=== PATIENT | male | born 1975 | race African-American/Black ===

== ENCOUNTER → 2020-09-04 14:08 | Outpatient (BNVA) | payer OTHER, SELFPAY | PROVIDERS: PCP Physician Assistant; Referring Provider Physician Assistant; Visit Provider Internal Medicine | DX: G47.33 Obstructive sleep apnea (adult) (pediatric) (principal); E66.9 Obesity, unspecified; Z68.42 Body mass index [BMI] 45.0-49.9, adult; I10 Essential (primary) hypertension | CPT/HCPCS: 99212 ==

== ENCOUNTER 2021-04-17 08:07 | Outpatient (REF) | payer OTHER, SELFPAY ==
--- NOTE | ~2021-04-17 | XR_ITS ---
EXAMINATION: XR CHEST CLINICAL INFORMATION: Neck pain dependence, unspecified, uncomplicated. COMPARISON: None TECHNIQUE: 2 views of the chest were obtained. FINDINGS: No significant abnormality is noted involving the heart, lungs, mediastinum, bony thorax or soft tissues. XR/XR chest 2V IMPRESSION: Unremarkable examination.
[2021-04-17 10:27] LABS: Hematocrit 51.2 % (42-52); Hemoglobin 16.2 g/dl (14.0-18.0); Mean Corpuscular HGB Conc 31.6 g/dl (31.0-36.0); Mean Corpuscular Volume 82.3 fL (80-98); Mean Platelet Volume 10.5 fL (9.4-12.4); Platelet Count 336 X10*3/uL (160-400); Red Blood Count 6.22 X10*6/uL (4.60-5.80); Red Cell Distribution Width 14.8 % (11.0-16.0); White Blood Count 7.7 X10*3/uL (4.8-10.8)
[2021-04-17 10:39] LABS: Estimated Average Glucose 117 mg/dL; Hemoglobin A1c % 5.7 %
[2021-04-17 10:58] LABS: Alanine Aminotransferase 23 U/L (0-40); Albumin Level 4.3 g/dL (3.5-5.0); Alkaline Phosphatase 106 U/L (39-117); Anion Gap 15 (12-20); Aspartate Amino Transferase 17 U/L (5-37); Bilirubin Total 0.4 mg/dL (0.0-1.0); Blood Urea Nitrogen 11 mg/dL (9-16); Calcium 9.6 mg/dL (8.4-10.2); Carbon Dioxide 26 mmol/L (22-29); Chloride 102 mmol/L (96-108); Cholesterol 171 mg/dL; Creatinine Urine 14.43 mg/dL; Estimated Glomerular Filt Rate > 60; Glucose Fasting 131 mg/dL (60-99); HDL Cholesterol 45 mg/dL; LDL Cholesterol Calculated 106 mg/dl; Microalbum/Creatinine Ratio Ur 34.6 ug/mg cr; Potassium 4.2 mmol/L (3.3-5.1); Sodium 139 mmol/L (135-145); Triglycerides 100 mg/dL
[2021-04-17 11:20] LABS: Prostate Specific Antigen Scr 0.34 ng/mL (<0.05-4.0); TSH reflex Free T4 0.47 uIU/mL (0.32-4.0)
== END 2021-04-17 08:08 | disposition home or self-care (01) ==
LOC: HO.10HDL 08:07
PROVIDERS: PCP Physician Assistant; Visit Provider Physician Assistant
DX: Z12.5 Encounter for screening for malignant neoplasm of prostate (principal); I10 Essential (primary) hypertension; E66.9 Obesity, unspecified; F17.200 Nicotine dependence, unspecified, uncomplicated
CPT/HCPCS: 36415; 71046; 80053; 80061; 82043; 83036; 84153; 84443; 85027

== ENCOUNTER 2022-01-18 10:06 | Outpatient (REF) | payer OTHER, SELFPAY ==
[2022-01-18 13:29] LABS: Hematocrit 50.8 % (42.0-52.0); Hemoglobin 16.2 g/dl (14.0-18.0); Mean Corpuscular HGB Conc 31.9 g/dl (31.0-36.0); Mean Corpuscular Hemoglobin 25.9 pg (27.0-33.0); Mean Corpuscular Volume 81.3 fL (80.0-98.0); Mean Platelet Volume 10.2 fL (9.4-12.4); Platelet Count 338 X10*3/uL (160-400); Red Blood Count 6.25 X10*6/uL (4.60-5.80); Red Cell Distribution Width 14.3 % (11.0-16.0); White Blood Count 8.5 X10*3/uL (4.8-10.8)
[2022-01-18 13:40] LABS: Alanine Aminotransferase 20 U/L (0-40); Albumin Level 4.4 g/dL (3.5-5.0); Alkaline Phosphatase 114 U/L (39-117); Anion Gap 13 (12-20); Aspartate Amino Transferase 17 U/L (5-37); Bilirubin Total 0.5 mg/dL (0.0-1.0); Blood Urea Nitrogen 11 mg/dL (9-16); Calcium 9.8 mg/dL (8.4-10.2); Carbon Dioxide 24 mmol/L (22-29); Chloride 103 mmol/L (96-108); Cholesterol 174 mg/dL; Estimated Glomerular Filt Rate > 60; Glucose Fasting 82 mg/dL (60-99); HDL Cholesterol 45 mg/dL; LDL Cholesterol Calculated 113 mg/dl; Potassium 4.2 mmol/L (3.3-5.1); Sodium 136 mmol/L (135-145); Total Protein 7.3 g/dL (6.5-8.0); Triglycerides 80 mg/dL
[2022-01-18 14:02] LABS: Prostate Specific Antigen Scr 0.69 ng/mL (<0.05-4.0); TSH reflex Free T4 0.86 uIU/mL (0.32-4.0)
[2022-01-18 14:08] LABS: Estimated Average Glucose 120 mg/dL; Hemoglobin A1c % 5.8 %
[2022-01-18 14:29] LABS: Creatinine Urine 34.29 mg/dL; Microalbum/Creatinine Ratio Ur 40.8 ug/mg cr
== END 2022-01-18 10:07 | disposition home or self-care (01) ==
LOC: HO.10HDL 10:06
PROVIDERS: Visit Provider Physician Assistant
DX: I10 Essential (primary) hypertension (principal); Z12.5 Encounter for screening for malignant neoplasm of prostate
CPT/HCPCS: 36415; 80053; 80061; 82043; 83036; 84153; 84443; 85027

== ENCOUNTER → 2023-02-16 12:20 | Outpatient (BNVA) | payer OTHER, SELFPAY | PROVIDERS: PCP Physician Assistant; Visit Provider Physician Assistant | DX: Z12.11 Encounter for screening for malignant neoplasm of colon (principal) | CPT/HCPCS: 99202 ==

== ENCOUNTER 2023-05-13 08:05 | Outpatient (REF) | payer OTHER, SELFPAY ==
[2023-05-13 11:43] LABS: Hematocrit 51.6 % (42.0-52.0); Hemoglobin 16.2 g/dl (14.0-18.0); Mean Corpuscular HGB Conc 31.4 g/dl (31.0-36.0); Mean Corpuscular Hemoglobin 25.8 pg (27.0-33.0); Mean Corpuscular Volume 82.2 fL (80.0-98.0); Mean Platelet Volume 10.7 fL (9.4-12.4); Platelet Count 292 X10*3/uL (160-400); Red Blood Count 6.28 X10*6/uL (4.60-5.80); Red Cell Distribution Width 14.2 % (11.0-16.0); White Blood Count 7.1 X10*3/uL (4.8-10.8)
[2023-05-13 12:43] LABS: Alanine Aminotransferase 16 U/L (0-40); Albumin Level 4.2 g/dL (3.5-5.0); Alkaline Phosphatase 118 U/L (39-117); Anion Gap 15 (12-20); Aspartate Amino Transferase 19 U/L (5-37); Bilirubin Total 0.5 mg/dL (0.0-1.0); Blood Urea Nitrogen 10 mg/dL (9-16); Calcium 9.6 mg/dL (8.4-10.2); Carbon Dioxide 25 mmol/L (22-29); Chloride 103 mmol/L (96-108); Cholesterol 158 mg/dL; Estimated Glomerular Filt Rate > 60; Glucose Fasting 81 mg/dL (60-99); HDL Cholesterol 47 mg/dL; LDL Cholesterol Calculated 91 mg/dl; Potassium 4.1 mmol/L (3.3-5.1); Sodium 139 mmol/L (135-145); Total Protein 7.4 g/dL (6.5-8.0); Triglycerides 104 mg/dL
[2023-05-13 12:56] LABS: TSH reflex Free T4 0.78 uIU/mL (0.32-4.0)
[2023-05-13 13:03] LABS: Prostate Specific Antigen Scr 0.44 ng/mL (<0.05-4.0)
[2023-05-13 13:03] LABS: Creatinine Urine 120.44 mg/dL; Microalbum/Creatinine Ratio Ur 254.8 ug/mg cr
== END 2023-05-13 08:06 | disposition home or self-care (01) ==
LOC: HO.WFDLDS 08:05
PROVIDERS: Visit Provider Physician Assistant
DX: Z12.5 Encounter for screening for malignant neoplasm of prostate (principal); I10 Essential (primary) hypertension
CPT/HCPCS: 36415; 80053; 80061; 82043; 84153; 84443; 85027

== ENCOUNTER 2023-06-15 13:53 | Outpatient (AMB) | payer OTHER, SELFPAY ==
[2023-06-15 13:59] VITALS: BP 128/74; PULSE 107; O2SAT 98; BMI 47.1
--- NOTE | 2023-06-15 13:59 | A.OFFPC_ITS ---
Vital Signs 06/15/23 13:59 Height 5 ft 9 in Weight 319 lb BMI 47.1 BP 128/74 Blood Pressure Location Lt brachial Position Sitting Pulse 107 H Pulse Source Pulse Oximeter Pulse Oximetry (%) 98 Oxygen Delivery Method Room Air Intake Visit Reasons: - weight check Allergies amlodipine Allergy (Unknown, Verified 06/15/23 14:12) GI side effects ibuprofen Allergy (Unknown, Verified 06/15/23 14:12) Hives citalopram [From Celexa] Adverse Reaction (Intermediate, Verified 06/15/23 14:12) Depression Medication List - Last Reconciled 06/15/23 by Chun Bernal PA-C bisacodyl (Dulcolax (bisacodyl)) 10 mg (2 x 5 mg) PO ONCE 1 day cetirizine (Zyrtec) 10 mg PO DAILY 90 days cyclobenzaprine 10 mg PO BID 7 days docusate sodium (Colace) 100 mg PO DAILY escitalopram oxalate 5 mg PO DAILY fluticasone propionate 50 mcg/actuation (Flonase Allergy Relief) 2 sprays intranasal BID 30 days gabapentin 300 mg PO BID 90 days lisinopril 30 mg PO DAILY lorazepam 0.5 mg PO DAILY PRN 7 days meloxicam 15 mg PO DAILY 30 days metoprolol succinate ER 25 mg PO DAILY phentermine 37.5 mg PO DAILY 28 days polyethylene glycol 3350 (Miralax) 238 grams PO ONCE PRN 1 day Tobacco use date assessed: 05/17/23 Dental Screening Dental Screen Date: 06/15/23 Did you have a dental visit in the last 12 months?: No Did you have a dental problem in the last 6 months where you did not have access to dental care?: No Was dental information given to patient?: Patient has dentist HPI - weight check HPI Details Lopez is a 47-year -old male here tod ay for? follow-up visit Patient has a past medical his tory significant f or essential hyper tension, smoker, o besity, chronic charlene mbar spine pain. At last visit we d iscussed his weigh t and he was hyun ochoa to try p.o. med ication (phentermi ne) to help with weight reduction. Unfortunately was not covered by in surance and was mu too expensive o [id number]. He is willing to try injection therapy to weight loss. Jey garcia also reports ove r the last 2 weeks noting right hip pain and instabili ty when walking. He cannot recall a ny trauma or any r ecent falls. 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 ? [employer]-->? ? ? .. ? Hypertension: ? Continues on lis inopril 30 mg, met oprolol 25. He rep orts his blood pre ssures in the morn ings have been sta ble though in the afternoons slightl y high.? Blood pre ssure still slight ly elevated today in office.? PLAN:? Will switch to us ing his blood pres sure medications i n the afternoons .. Major depressi ve disorder:? Has lab had longstandi ng depression near ly a month ago had severe episode de pression to which he believed was du e to a medication (Celexa) and has d iscontinued its us e and now feels be tter. .. Obstruct neel sleep apnea:? Has been treated w ith CPAP nightly b asis with good eff ect on his sleep.? Continues to foll ow pulmonology. ? .. ?? ?Tobacc o dependency:? Unf ortunately pick ba ck up smoking and now smoking pack c igarettes per day ? PFSH Medical History HTN (hypertension) Hypertension Lumbar spondylosis RYLIE (obstructive sleep apnea) Tobacco dependence Surgical History No pertinent past surgical history Family History Father No problems noted. Mother Arthritis Asthma Paternal Grandfather Leukemia Substance use disorder Brother Substance use disorder Social History Housing: Apartment Alcohol intake: former Patient Tobacco Use Status: Former Tobacco user Tobacco use type: Cigarette Cigarette Packs Per Day: 0.5 Cigarettes Per Day: 10 Years Smoked: 27 e-Cigarette/Vaping Use: Never Used Second Hand Smoke Exposure: Yes Substance Use Type: Marijuana service: No Current occupational status: employed Current occupation: [employer] Cognitive needs: No Hearing needs: No Vision needs: No Questionnaire PHQ-9 Over the last 2 weeks, how often have you been bothered by any of the following problems? 1. Little interest or pleasure in doing things: more than half the days 2. Feeling down, depressed, or hopeless: more than half the days 3. Trouble falling or staying asleep, or sleeping too much: more than half the days 4. Feeling tired or having little energy: more than half the days 5. Poor appetite or overeating: more than half the days 6. Feeling bad about yourself - or that you are a failure or have let yourself or your family down: nearly every day 7. Trouble concentrating on things, such as reading the newspaper or watching television: several days 8. Moving or speaking so slowly that other people could have noticed. Or the opposite - being so fidgety or restless that you have been moving around a lot more than usual: several days 9. Thoughts that you would be better off or of hurting yourself in some way: not at all Total score: 15 Depression Screening Interpretation: Positive 38411 - PHQ-9 Billing: Yes Source: Developed by Drs. Bryson Stokes, Elda Prince, Sid Acevedo and colleagues, with an educational junior from [employer]. Thrive Questionnaire Date Thrive assessed: 05/17/23 I am a: Patient What is your living situation today?: I have a steady place to live Within the past 12 months, did the food you bought not last and you didn't have the money to get more?: Never true Within the past 12 months, did you worry whether your food would run out before you got money to buy more?: Never true Do you have trouble paying for medicines?: No Do you have trouble getting transportation to medical appointments?: No Do you have trouble paying your heating and electricity bill?: No Do you have trouble taking care of your child, family member or friend?: No Do you have trouble with day-to-day activities such as bathing, preparing meals, shopping, managing finances, etc.?: No Are you currently unemployed and looking for a job?: No Are you interested in more education?: No Please select the resources that you would like help with: None Currently or been in a relationship where the following occur: no concerns reported AUDIT C Alcohol Use Questionnaire (AUDIT-C) 1. How often do you have a drink containing alcohol?: Never 3. How often do you have six or more drinks on one occasion?: Never Total Score: 0 JEFF-7 AMB Questionnaire JEFF-7 Date JEFF - 7 assessed: 05/17/23 Feeling nervous, anxious, or on edge: 1 = Several days Not being able to stop or control worryin = Several days Worrying too much about different things: 1 = Several days Trouble relaxin = Several days Being so restless that it is hard to sit still: 1 = Several days Becoming easily annoyed or irritable: 1 = Several days Feeling afraid as if something awful might happen: 1 = Several days Total JEFF-7 score (0-4 normal; 5-9 mild; 10-14 moderate; 15-21 severe): 7 Source: Developed by Drs. Bryson Stokes, Elda Prince, Sid Acevedo and colleagues, with an educational junior from [employer]. JEFF-7 Assessment Billing JEFF-7 Assessment Tool: JEFF-7 Assessment 03204 Review of Systems Const Denies headache(s) Eyes Denies loss of vision ENT Denies vertigo, Denies dizziness, Denies headache(s) and Denies sore throat Card Denies chest pain, Denies leg edema and Denies lightheadedness Resp Denies cough, Denies hemoptysis and Denies wheezing GI Denies abdominal pain, Denies melena, Denies constipation, Denies diarrhea and Denies vomiting Denies dysuria, Denies urinary frequency and Denies urinary urgency Musc Denies arthralgias, Denies joint swelling, Denies numbness and Denies tingling Neuro Denies Abnormal speech present, Denies behavioral changes, Denies vertigo, Denies dizziness, Denies headache(s), Denies loss of vision, Denies memory loss, Denies numbness and Denies tingling Psych Denies anxiety, Denies behavioral changes, Denies depression, Denies memory loss and Denies panic attacks Martin/Lymph Denies easy bleeding and Denies easy bruising Aller/Immun Denies wheezing Physical exam (Primary Care) Vital Signs: Last Vital Signs Pulse 107 H 06/15/23 13:59 BP 128/74 06/15/23 13:59 Pulse Ox 98 06/15/23 13:59 Oxygen Delivery Method Room Air 06/15/23 13:59 BMI result Body Mass Index 47.1 Tobacco/Smoking Status: Tobacco use Status Tobacco use date assessed 05/17/23 06/15/23 14:05 Patient Tobacco Use Status Former Tobacco user 06/15/23 14:05 Tobacco use type Cigarette 06/15/23 14:05 e-Cigarette/Vaping Use Never Used 06/15/23 14:05 PHQ-9: PHQ-9 Score PHQ-9: Total score 15 06/15/23 14:16 Depression Screening Interpretation: Positive Thrive Assessment: Date of Thrive Assessment Date Thrive assessed 05/17/23 06/15/23 14:05 Currently or been in a relationship where the following occur: no concerns reported Const General: healthy appearing, no acute distress, alert and awake Nutritional Appearance: well nourished Orientation/consciousness: oriented to person, oriented to place and oriented to time HENMT Ears: TM's normal bilaterally General nose exam: Normal nasal mucous membranes and turbinates present Eyes Conjunctivae: conjunctivae normal Sclerae: sclerae normal Pupils: Equal, round and reactive pupils present Neck Neck: Yes no lymphadenopathy and Yes no JVD Thyroid: Thyroid normal Carotids: no bruits Resp Effort & Inspection: normal respiratory effort and not tachypneic Auscultation: no crackles, no rales, no rhonchi and no wheezes Cardio Rate: regular rate Rhythm: regular rhythm Heart sounds: no murmurs and normal S1 and S2 GI Palpation (GI): Soft to palpation, nontender, no hepatomegaly and no splenomegaly Auscultation: normal bowel sounds Skin General skin exam: no rashes or lesions noted and dry skin Neuro General: oriented to person, oriented to place and oriented to time Cranial nerves: Yes Equal, round and reactive pupils present Speech: No Abnormal speech present Gait exam (Neuro): Normal gait present Motor exam (neuro): no tremor noted Extrem Other: RIGHT HIP WITH LIMITED FLEXION DUE TO STIFFNESS. REPORTS SOME SUBJECTIVE DISCOMFORT WHILE STANDING IN HIS RIGHT HIP Right upper extremity: full ROM Left upper extremity: full ROM Right lower extremity: full ROM; no edema Left lower extremity: full ROM; no edema Psych Mental Status: mental status grossly normal Speech and movement: Normal speech and movement present Affect: normal affect Attitude: cooperative Thought process: Normal thought process present Assessment and Plan Assessment & Plan (1) Obese: Code(s): E66.9 - Obesity, unspecified Qualifiers: Body mass index: BMI 45.0-49.9 Obesity classification: adult class 3 (BMI >= 40) Obesity type: due to excess calories Serious obesity comorbidity presence: with serious comorbidity Qualified Code(s): E66.01 - Morbid (severe) obesity due to excess calories; Z68.42 - Body mass index [BMI] 45.0-49.9, adult Plan: Patient continues to have a BM my well over 40. Also does have impaired glucose metabolism in A1c of 5.8 in a prediabetic range. He is willing to try Ozempic once a week injection to help with weight loss. (2) Tendinitis of right hip flexor: Code(s): M76.891 - Other specified enthesopathies of right lower limb, excluding foot Plan: Patient's right hip pain and instability with flexion of the hip most consistent with a tendinitis of the hip flexors. Will likely benefit from some physical therapy. Would likely need rest to help with his recovery. 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 (3) Impaired glucose metabolism: Code(s): R73.09 - Other abnormal glucose Plan: As above patient has A1c at 5.8 and prediabetic range. Would likely benefit from injectable weight loss therapy Medications: New semaglutide (Ozempic) for 4 weeks 0.25 mg (0.368 mL) subcut QWEEK 4 weeks 3 mL 1RF E66.9 - Obesity, unspecified, R73.09 - Other abnormal glucose Discontinued phentermine must administer 30 minutes before or 1-2 hours after breakfast Discontinued Reason: Doctor's Order 37.5 mg PO DAILY 28 days 28 caps 0RF E66.01 - Morbid (severe) obesity due to excess calories, Z68.42 - Body mass index [BMI] 45.0-49.9, adult Coding Level of Care Code Est Pt Level 4 (45080) Diagnoses Obese E66.01; Z68.42 Body mass index: BMI 45.0-49.9 Obesity classification: adult class 3 (BMI >= 40) Obesity type: due to excess calories Serious obesity comorbidity presence: with serious comorbidity Tendinitis of right hip flexor M76.891 Impaired glucose metabolism R73.09 Additional Codes JEFF-7 Assessment Billing - JEFF-7 Assessment Tool: JEFF-7 Assessment 26886 ([id number])
== END 2023-06-15 14:37 | disposition home or self-care (01) ==
PROVIDERS: PCP Physician Assistant; Visit Provider Physician Assistant
DX: E66.01 Morbid (severe) obesity due to excess calories (principal); Z68.42 Body mass index [BMI] 45.0-49.9, adult; M76.891 Other specified enthesopathies of right lower limb, excluding foot; R73.09 Other abnormal glucose
CPT/HCPCS: 99214

== ENCOUNTER 2024-09-11 13:51 | Outpatient (AMB) | payer OTHER, SELFPAY ==
[2024-09-11 13:56] VITALS: BP 150/100; PULSE 105; O2SAT 97; BMI 46.2
--- NOTE | 2024-09-11 13:56 | A.OFFPC_ITS ---
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 Accompanied by: Self / Same As Patient Allergies amlodipine Allergy (Unknown, Verified 09/11/24 14:11) GI side effects ibuprofen Allergy (Unknown, Verified 09/11/24 14:11) Hives citalopram [From Celexa] Adverse Reaction (Intermediate, Verified 09/11/24 14:11) Depression Medication List - Last Reconciled 09/11/24 by Chun Bernal PA-C bisacodyl (Dulcolax (bisacodyl)) 10 mg (2 x 5 mg) PO ONCE 1 day cetirizine (Zyrtec) 10 mg PO DAILY 90 days cyclobenzaprine 10 mg PO BID 7 days docusate sodium (Colace) 100 mg PO DAILY dulaglutide (Trulicity) 0.75 mg (0.5 mL) subcut QWEEK 4 weeks escitalopram oxalate 5 mg PO DAILY fluticasone propionate 50 mcg/actuation (Flonase Allergy Relief) 2 sprays intranasal BID 30 days gabapentin 300 mg PO BID 90 days lisinopril 30 mg PO DAILY lorazepam 0.5 mg PO DAILY PRN 7 days meloxicam 15 mg PO DAILY 30 days metoprolol succinate ER 25 mg PO DAILY polyethylene glycol 3350 (Miralax) 238 grams PO ONCE PRN 1 day semaglutide (Ozempic) 0.25 mg (0.368 mL) subcut QWEEK 4 weeks Tobacco use date assessed: 09/11/24 Dental Screening Dental Screen Date: 09/11/24 Did you have a dental visit in the last 12 months?: Yes Did you have a dental problem in the last 6 months where you did not have access to dental care?: No Was dental information given to patient?: Patient has dentist HPI elevated BP HPI Details Lopez is a 48 year-old male here today for? follow-up visit Patient has a past medical history significant for essential hypertension, smoker, obesity, chronic lumbar spine pain. Concern-> - Patient reports his blood pressure has been up as of late. He attributes this to a salty [place] food he may have a in. He was on hydrochlorothiazide in the past which was helpful thus will restart for better blood pressure control. Lumbar spondylosis: Continues to have lower lumbar spine pain. Does use topical Simone-Rock. Does report meloxicam was very helpful in reducing his pain. Will be considering physical therapy. ? CHRONIC MEDICAL CONDITIONS-->? ? ? .. ? Hypertension:?Patient reports his blood pressure has been up as of late. He attributes this to a salty [place] food he may have a in. He was on hydrochlorothiazide in the past which was helpful thus will restart for better blood pressure control. Continues on lisinopril 30 mg, metoprolol 25. ..Major depressive disorder:? Has lab tran d longstanding depression nearly a month ago had severe episode depression to which he believed was due to a medication (Celexa) and has discontinued its use and now feels better. .. ..Obstructive sleep apnea:? Has been farzana ated with CPAP nightly basis with good effect on his sleep.? Continues to follow pulmonology. [facility] Medical History Lumbar spondylosis Tobacco dependence Hypertension RYLIE (obstructive sleep apnea) HTN (hypertension) Surgical History No pertinent past surgical history Family History Father No problems noted. Mother Arthritis Asthma Paternal Grandfather Leukemia Substance use disorder Brother Substance use disorder Social History Housing: Apartment Alcohol intake: former Patient Tobacco Use Status: Former Tobacco user Tobacco use type: Cigarette Cigarette Packs Per Day: 0.5 Cigarettes Per Day: 10 Years Smoked: 27 e-Cigarette/Vaping Use: Never Used Second Hand Smoke Exposure: Yes Substance Use Type: Marijuana service: No Current occupational status: employed Current occupation: N Cognitive needs: No Hearing needs: No Vision needs: No Questionnaire PHQ-9 Over the last 2 weeks, how often have you been bothered by any of the following problems? 1. Little interest or pleasure in doing things: nearly every day 2. Feeling down, depressed, or hopeless: nearly every day 3. Trouble falling or staying asleep, or sleeping too much: more than half the days 4. Feeling tired or having little energy: nearly every day 5. Poor appetite or overeating: nearly every day 6. Feeling bad about yourself - or that you are a failure or have let yourself or your family down: more than half the days 7. Trouble concentrating on things, such as reading the newspaper or watching television: nearly every day 8. Moving or speaking so slowly that other people could have noticed. Or the opposite - being so fidgety or restless that you have been moving around a lot more than usual: several days 9. Thoughts that you would be better off or of hurting yourself in some way: not at all Total score: 20 Depression Screening Interpretation: Positive Depression Screening Follow-up: Existing condition Depression Screening Done: Yes 90915 - PHQ-9 Billing: Yes Source: Developed by Drs. Bryson Stokes, Elda Prince, Sid Acevedo and colleagues, with an educational junior from [employer]. Thrive Questionnaire Date Thrive assessed: 09/11/24 I am a: Patient What is your living situation today?: I have a steady place to live Within the past 12 months, did the food you bought not last and you didn't have the money to get more?: Never true Within the past 12 months, did you worry whether your food would run out before you got money to buy more?: Never true Do you have trouble paying for medicines?: No Do you have trouble getting transportation to medical appointments?: Yes Do you have trouble paying your heating and electricity bill?: No Do you have trouble taking care of your child, family member or friend?: No Do you have trouble with day-to-day activities such as bathing, preparing meals, shopping, managing finances, etc.?: No Are you currently unemployed and looking for a job?: No Are you interested in more education?: No Please select the resources that you would like help with: None Currently or been in a relationship where the following occur: No concerns reported THRIVE Score: 1 AUDIT C Alcohol Use Questionnaire (AUDIT-C) 1. How often do you have a drink containing alcohol?: Never 3. How often do you have six or more drinks on one occasion?: Never Total Score: 0 JEFF-7 AMB Questionnaire JEFF-7 Date JEFF - 7 assessed: 09/11/24 Feeling nervous, anxious, or on edge: 3 = Nearly every day Not being able to stop or control worryin = Nearly every day Worrying too much about different things: 3 = Nearly every day Trouble relaxin = Nearly every day Being so restless that it is hard to sit still: 3 = Nearly every day Becoming easily annoyed or irritable: 3 = Nearly every day Feeling afraid as if something awful might happen: 3 = Nearly every day Total JEFF-7 score (0-4 normal; 5-9 mild; 10-14 moderate; 15-21 severe): 21 Source: Developed by Drs. Bryson Stokes, Elda Prince, Sid Acevedo and colleagues, with an educational junior from [employer]. JEFF-7 Assessment Billing JEFF-7 Assessment Tool: JEFF-7 Assessment 89383 Review of Systems Const Denies headache(s) Eyes Denies loss of vision ENT Denies vertigo, Denies dizziness, Denies headache(s) and Denies sore throat Card Denies chest pain, Denies leg edema and Denies lightheadedness Resp Denies cough, Denies hemoptysis and Denies wheezing GI Denies abdominal pain, Denies melena, Denies constipation, Denies diarrhea and Denies vomiting Denies dysuria, Denies urinary frequency and Denies urinary urgency Musc Reports back pain, Denies arthralgias, Denies joint swelling, Denies numbness and Denies tingling Neuro Denies Abnormal speech present, Denies behavioral changes, Denies vertigo, Denies dizziness, Denies headache(s), Denies loss of vision, Denies memory loss, Denies numbness and Denies tingling Psych Reports anxiety, Denies behavioral changes, Reports depression, Reports anhedonia, Denies memory loss and Denies panic attacks Martin/Lymph Denies easy bleeding and Denies easy bruising Aller/Immun Denies wheezing Physical exam (Primary Care) Vital Signs: Last Vital Signs Pulse 105 H 09/11/24 13:56 BP 150/100 H 09/11/24 13:56 Pulse Ox 97 09/11/24 13:56 Oxygen Delivery Method Room Air 09/11/24 13:56 BMI result Body Mass Index 46.2 Tobacco/Smoking Status: Tobacco use Status Tobacco use date assessed 09/11/24 09/11/24 14:09 Patient Tobacco Use Status Former Tobacco user 09/11/24 13:59 Tobacco use type Cigarette 09/11/24 13:59 e-Cigarette/Vaping Use Never Used 09/11/24 13:59 PHQ-9: PHQ-9 Score PHQ-9: Total score 20 09/11/24 14:10 Depression Screening Interpretation: Positive Depression Screening Follow-up: Existing condition Thrive Assessment: Date of Thrive Assessment Date Thrive assessed 09/11/24 09/11/24 13:59 Currently or been in a relationship where the following occur: No concerns reported Const General: healthy appearing, no acute distress, alert and awake Nutritional Appearance: well nourished Orientation/consciousness: oriented to person, oriented to place and oriented to time HENMT Ears: TM's normal bilaterally General nose exam: Normal nasal mucous membranes and turbinates present Eyes Conjunctivae: conjunctivae normal Sclerae: sclerae normal Pupils: Equal, round and reactive pupils present Neck Neck: Yes no lymphadenopathy and Yes no JVD Thyroid: Thyroid normal Carotids: no bruits Resp Effort & Inspection: normal respiratory effort and not tachypneic Auscultation: no crackles, no rales, no rhonchi and no wheezes Cardio Rate: regular rate Rhythm: regular rhythm Heart sounds: no murmurs and normal S1 and S2 GI Palpation (GI): Soft to palpation, nontender, no hepatomegaly and no splenomegaly Auscultation: normal bowel sounds Skin General skin exam: no rashes or lesions noted and dry skin Neuro General: oriented to person, oriented to place and oriented to time Cranial nerves: Yes Equal, round and reactive pupils present Speech: No Abnormal speech present Gait exam (Neuro): Normal gait present Motor exam (neuro): no tremor noted Extrem Right upper extremity: full ROM Left upper extremity: full ROM Right lower extremity: full ROM; no edema Left lower extremity: full ROM; no edema Psych Mental Status: mental status grossly normal Speech and movement: Normal speech and movement present Affect: normal affect Attitude: cooperative Thought process: Normal thought process present Office Procedures Flu Questionnaire Does the patient have a severe egg allergy?: No Immunizations Fluarix Triv [id number] (PF) 45 mcg (15 mcg x 3)/0.5 mL IM syringe Performing Provider: Chun Bernal PA-C Performing Location: [facility] Documented (not given) by: JONATHAN Branch on 09/11/24 14:11 Reason Not Given: Received Previously Coding Level of Care Code Est Pt Level 4 (64189) Diagnoses Primary hypertension I10 Hypertension type: primary hypertension Lumbar spondylosis M47.816 MDD (major depressive disorder), recurrent episode, moderate F33.1 JEFF (generalized anxiety disorder) F41.1 Class 3 obesity E66.813 Additional Codes JEFF-7 Assessment Billing - JEFF-7 Assessment Tool: JEFF-7 Assessment 81580 ([id number]) PHQ-9 - 13016 - PHQ-9 Billing: Yes ([id number]) Assessment & Plan Assessment & Plan (1) HTN (hypertension): Code(s): I10 - Essential (primary) hypertension Category: Medical Qualifiers: Hypertension type: primary hypertension Qualified Code(s): I10 - Essential (primary) hypertension Plan: Patient's blood pressure elevated today in office. Will add on additional hydrochlorothiazide for better blood pressure control. He will continue working on lifestyle and dietary modifications. Goal blood pressures to be below 140/90. (2) Lumbar spondylosis: Code(s): M47.816 - Spondylosis without myelopathy or radiculopathy, lumbar region Category: Medical Plan: As per HPI patient continues to have lower lumbar spine pain, he relates this to his weight. Does use topical treatment. He does report meloxicam was helpful for him. Continues with gabapentin as well. Will consider physical therapy (3) MDD (major depressive disorder), recurrent episode, moderate: Code(s): F33.1 - Major depressive disorder, recurrent, moderate Category: Medical Plan: Patient's PHQ-9 score positive for depression which has been existing condition for him. Does use Lexapro 5 mg and will consider higher dose to get better control over his mood and anxiety. Will also be considering cognitive behavioral therapy. (4) JEFF (generalized anxiety disorder): Code(s): F41.1 - Generalized anxiety disorder Category: Medical Plan: Patient's JEFF-7 score positive for pretty severe anxiety. He does report a recent family and he has quit smoking. He reports his anxiety has been very elevated as of late. Does use lorazepam as a p.r.n. which works pretty well. Will consider increasing his dose of Lexapro to 10 mg for better control of his anxieties. (5) Class 3 obesity: Code(s): E66.813 - Obesity, class 3 Category: Medical Plan: Patient does understand his BMI is over 40 work on being more physically active and adapting to better eating habits to reduce his weight. Has gained weight since he has stopped smoking.. Does take Trulicity 0.75 mgWeekly Will consider transitioning to an alternative GLP 1 Orders: Orders Influenza [id number] Immunization Today Z23 - Encounter for immunization Hemoglobin A1c Today R73.09 - Other abnormal glucose Comprehensive [place]. Panel Fast Today R73.09 - Other abnormal glucose Microalbumin, Random (w Creat) Today I10 - Essential (primary) hypertension Lipid Panel Today I10 - Essential (primary) hypertension Complete Blood Count no Diff Today I10 - Essential (primary) hypertension Medications: New hydrochlorothiazide 12.5 mg PO DAILY 90 days 90 tabs 1RF I10 - Essential (primary) hypertension Refilled meloxicam 15 mg PO DAILY 30 days 30 tabs 3RF M47.816 - Spondylosis without myelopathy or radiculopathy, lumbar region lorazepam 0.5 mg PO DAILY 7 days PRN 7 tabs 0RF anxiety F41.1 - Generalized anxiety disorder Discontinued semaglutide (Ozempic) for 4 weeks Discontinued Reason: Doctor's Order 0.25 mg (0.368 mL) subcut QWEEK 4 weeks 3 mL 1RF E66.9 - Obesity, unspecified, R73.09 - Other abnormal glucose Patient Instructions: Goal: Blood pressure to remain below 140/90 Barriers: Adherence to physical activity and healthy eating habits
== END 2024-09-11 14:32 | disposition home or self-care (01) ==
PROVIDERS: PCP Physician Assistant; Visit Provider Physician Assistant
DX: I10 Essential (primary) hypertension (principal); M47.816 Spondylosis without myelopathy or radiculopathy, lumbar region; F33.1 Major depressive disorder, recurrent, moderate; E66.813 Obesity, class 3; Z68.42 Body mass index [BMI] 45.0-49.9, adult; F41.1 Generalized anxiety disorder

== ENCOUNTER → 2024-09-11 13:51 | Outpatient (BNVA) | payer OTHER, SELFPAY | PROVIDERS: PCP Physician Assistant; Visit Provider Physician Assistant | DX: I10 Essential (primary) hypertension (principal); M47.816 Spondylosis without myelopathy or radiculopathy, lumbar region; F33.1 Major depressive disorder, recurrent, moderate; F41.1 Generalized anxiety disorder; E66.813 Obesity, class 3; Z68.42 Body mass index [BMI] 45.0-49.9, adult; Z71.3 Dietary counseling and surveillance | CPT/HCPCS: 96127; 99212 ==

== ENCOUNTER 2024-09-13 08:39 | Outpatient (REF) | payer OTHER, SELFPAY ==
[2024-09-13 11:20] LABS: Hematocrit 54.4 % (42.0-52.0); Hemoglobin 17.6 g/dl (14.0-18.0); Mean Corpuscular HGB Conc 32.4 g/dl (31.0-36.0); Mean Corpuscular Hemoglobin 26.3 pg (27.0-33.0); Mean Corpuscular Volume 81.3 fL (80.0-98.0); Mean Platelet Volume 10.1 fL (9.4-12.4); Platelet Count 330 X10*3/uL (160-400); Red Blood Count 6.69 X10*6/uL (4.60-5.80); White Blood Count 7.9 X10*3/uL (4.8-10.8)
[2024-09-13 11:31] LABS: Alanine Aminotransferase 17 U/L (0-40); Albumin Level 4.5 g/dL (3.5-5.0); Alkaline Phosphatase 103 U/L (39-117); Anion Gap 12 (12-20); Aspartate Amino Transferase 22 U/L (5-37); Bilirubin Total 0.6 mg/dL (0.0-1.0); Blood Urea Nitrogen 8 mg/dL (9-16); Calcium 9.2 mg/dL (8.4-10.2); Carbon Dioxide 26 mmol/L (22-29); Chloride 103 mmol/L (96-108); Cholesterol 161 mg/dL (<200); Estimated Glomerular Filt Rate > 60; Glucose Fasting 98 mg/dL (60-99); HDL Cholesterol 44 mg/dL (>40); LDL Cholesterol Calculated 98 mg/dL (<100); Potassium 3.7 mmol/L (3.3-5.1); Sodium 137 mmol/L (135-145); Total Protein 7.9 g/dL (6.5-8.0); Triglycerides 99 mg/dL (<150)
[2024-09-13 12:20] LABS: Microalbum/Creatinine Ratio Ur 93.1 ug/mg cr (<30)
[2024-09-13 14:13] LABS: Estimated Average Glucose 123 mg/dL; Hemoglobin A1C 169.2877 umol/L; Hemoglobin A1c % 5.9 % (<6.0)
== END 2024-09-13 08:40 | disposition home or self-care (01) ==
LOC: HO.WFDLDS 08:39
PROVIDERS: Visit Provider Physician Assistant
DX: I10 Essential (primary) hypertension (principal); R73.09 Other abnormal glucose
CPT/HCPCS: 36415; 80053; 80061; 82043; 82570; 83036; 85027

== ENCOUNTER 2024-09-18 09:57 | Outpatient (AMB) | payer OTHER, SELFPAY ==
[2024-09-18 10:21] VITALS: BP 170/110; PULSE 98; O2SAT 98; BMI 46.7
--- NOTE | 2024-09-18 10:21 | A.OFFPC_ITS ---
Vital Signs 09/18/24 10:21 Height 5 ft 9 in Weight 316 lb 8 oz BMI 46.7 BP 170/110 H Blood Pressure Location Lt brachial Position Sitting Pulse 98 Pulse Source Pulse Oximeter Pulse Oximetry (%) 98 Oxygen Delivery Method Room Air Intake Visit Reasons: annual exam Intake Note: Patient is here today for a physical. Label Folder Required: No Accompanied by: Self / Same As Patient Allergies amlodipine Allergy (Unknown, Verified 09/18/24 10:42) GI side effects ibuprofen Allergy (Unknown, Verified 09/18/24 10:42) Hives citalopram [From Celexa] Adverse Reaction (Intermediate, Verified 09/18/24 10:42) Depression Medication List - Last Reconciled 09/18/24 by Chun Bernal PA-C cetirizine (Zyrtec) 10 mg PO DAILY 90 days dulaglutide (Trulicity) 0.75 mg (0.5 mL) subcut QWEEK 4 weeks escitalopram oxalate 5 mg PO DAILY fluticasone propionate 50 mcg/actuation (Flonase Allergy Relief) 2 sprays intranasal BID 30 days gabapentin 300 mg PO BID 90 days hydrochlorothiazide 12.5 mg PO DAILY 90 days lisinopril 30 mg PO DAILY lorazepam 0.5 mg PO DAILY PRN 7 days meloxicam 15 mg PO DAILY 30 days metoprolol succinate ER 25 mg PO DAILY Tobacco use date assessed: 09/11/24 Dental Screening Dental Screen Date: 09/11/24 [facility] annual exam HPI Details Lopez is a 48 year-old male here today for an annual physical Patient has a past medical history significant for essential hypertension, smoker, obesity, chronic lumbar spine pain. Lumbar spondylosis: Continues to have lower lumbar spine pain. Does use topical Simone-Rock. Does report meloxicam was very helpful in reducing his pain. Will be considering physical therapy. ?? .. ? Hypertension:?Patient reports his blood pressure has been up as of late. He attributes this to a salty [place] food he may have a in. He was on hydrochlorothiazide in the past which was helpful thus will restart for better blood pressure control. Continues on lisinopril 30 mg, metoprolol 25. PLAN: Will add on additional nifedipine 30 mg extended release for better blood pressure control. Will try to also work on weight reduction with a GLP 1 injection weekly which we hope will help him with blood pressure control as well. ..Major depressive disorder/ anxiety:? Jey garcia reports he has been under more stress as of late. He does admit to a recent in the family. He continues on Lexapro 5 mg in his willing to increase the dose for better control of his mood and anxiety. Does have lorazepam 0.5 mg available to him for high points of anxiety as well. .. ..Obstructive sleep apnea:? Has been farzana ated with CPAP nightly basis with good effect on his sleep.? Continues to follow pulmonology. Vaccines:? Up-to-date with tetanus vaccine, pneumonia vaccine and COVID vaccines Colonoscopy: Had initial appointment with GI though does not seem to be scheduled for colonoscopy. Laboratory Tests 05/13/23 09/13/24 09/13/24 09:24 08:41 08:48 RBC 6.69 H Hgb 17.6 Hct 54.4 H Creatinine 0.98 Cholesterol 161 LDL Cholesterol, C alc 98 Urine Microalbumin 307.0 103.0 PFSH Medical History Lumbar spondylosis Tobacco dependence Hypertension RYLIE (obstructive sleep apnea) HTN (hypertension) Surgical History No pertinent past surgical history Family History Father No problems noted. Mother Arthritis Asthma Paternal Grandfather Leukemia Substance use disorder Brother Substance use disorder Social History Housing: Apartment Alcohol intake: former Patient Tobacco Use Status: Former Tobacco user Tobacco use type: Cigarette Cigarette Packs Per Day: 0.5 Cigarettes Per Day: 10 Years Smoked: 27 e-Cigarette/Vaping Use: Never Used Second Hand Smoke Exposure: Yes Substance Use Type: Marijuana service: No Current occupational status: employed Current occupation: [employer] Cognitive needs: No Hearing needs: No Vision needs: No Questionnaire PHQ-9 Over the last 2 weeks, how often have you been bothered by any of the following problems? 1. Little interest or pleasure in doing things: not at all 2. Feeling down, depressed, or hopeless: not at all 3. Trouble falling or staying asleep, or sleeping too much: several days 4. Feeling tired or having little energy: several days 5. Poor appetite or overeating: not at all 6. Feeling bad about yourself - or that you are a failure or have let yourself or your family down: not at all 7. Trouble concentrating on things, such as reading the newspaper or watching television: not at all 8. Moving or speaking so slowly that other people could have noticed. Or the opposite - being so fidgety or restless that you have been moving around a lot more than usual: not at all 9. Thoughts that you would be better off or of hurting yourself in some way: not at all Total score: 2 Source: Developed by Drs. Bryson Stokes, Elda Prince, Sid Acevedo and colleagues, with an educational junior from [employer]. Thrive Questionnaire Date Thrive assessed: 09/11/24 I am a: Patient What is your living situation today?: I have a steady place to live Within the past 12 months, did the food you bought not last and you didn't have the money to get more?: Never true Within the past 12 months, did you worry whether your food would run out before you got money to buy more?: Never true Do you have trouble paying for medicines?: No Do you have trouble getting transportation to medical appointments?: Yes Do you have trouble paying your heating and electricity bill?: No Do you have trouble taking care of your child, family member or friend?: No Do you have trouble with day-to-day activities such as bathing, preparing meals, shopping, managing finances, etc.?: No Are you currently unemployed and looking for a job?: No Are you interested in more education?: No Please select the resources that you would like help with: None Currently or been in a relationship where the following occur: No concerns reported THRIVE Score: 1 AUDIT C Alcohol Use Questionnaire (AUDIT-C) 1. How often do you have a drink containing alcohol?: Never Total Score: 0 JEFF-7 AMB Questionnaire JEFF-7 Date JEFF - 7 assessed: 09/11/24 Feeling nervous, anxious, or on edge: 2 = More than half the days Not being able to stop or control worryin = More than half the days Worrying too much about different things: 2 = More than half the days Trouble relaxin = More than half the days Being so restless that it is hard to sit still: 2 = More than half the days Becoming easily annoyed or irritable: 2 = More than half the days Feeling afraid as if something awful might happen: 2 = More than half the days Total JEFF-7 score (0-4 normal; 5-9 mild; 10-14 moderate; 15-21 severe): 14 Source: Developed by Drs. Bryson Stokes, Elda Prince, Sid Acevedo and colleagues, with an educational junior from [employer]. JEFF-7 Assessment Billing JEFF-7 Assessment Tool: JEFF-7 Assessment 20902 Review of Systems Const Denies body aches, Denies chills, Denies excessive sweating, Denies fatigue, Denies fever(s) and Denies headache(s) Eyes Denies blurry vision ENT Denies dysphagia, Denies vertigo, Denies dizziness, Denies headache(s), Denies hearing loss and Denies tinnitus Card Denies chest pain, Denies chest pain with activity, Denies syncope, Denies irregular heart rhythm and Denies dyspnea Resp Denies chest congestion, Denies cough, Denies hemoptysis, Denies dyspnea and Denies wheezing GI Denies abdominal pain, Denies melena, Denies hematochezia, Denies coffee ground emesis, Denies dysphagia, Denies diarrhea, Denies nausea and Denies vomiting Denies difficulty urinating, Denies dysuria, Denies urinary frequency, Denies u rinary hesitancy and Denies urinary urgency Musc Denies arthralgias, Denies limited range of motion, Denies muscle cramps and Denies muscle weakness Skin/Breast Denies rash and Denies skin ulcer Neuro Denies Abnormal speech present, Denies confusion, Denies vertigo, Denies dizziness, Denies syncope, Denies headache(s), Denies memory loss and Denies seizure-like activity Psych Denies anxiety, Denies confusion, Denies depression, Denies memory loss, Denies panic attacks and Denies paranoia Endo Denies excessive sweating, Denies fatigue, Denies flushing, Denies polydipsia and Denies polyuria Aller/Immun Denies wheezing Physical exam (Primary Care) Vital Signs: Last Vital Signs Pulse 98 09/18/24 10:21 BP 170/110 H 09/18/24 10:21 Pulse Ox 98 09/18/24 10:21 Oxygen Delivery Method Room Air 09/18/24 10:21 BMI result Body Mass Index 46.7 BMI Assessment/Plan discussion: High BMI High, discussed plan: lifestyle, weight reduction, dietary and physical activity Tobacco/Smoking Status: Tobacco use Status Tobacco use date assessed 09/11/24 09/18/24 10:24 Patient Tobacco Use Status Former Tobacco user 09/18/24 10:24 Tobacco use type Cigarette 09/18/24 10:24 e-Cigarette/Vaping Use Never Used 09/18/24 10:24 PHQ-9: PHQ-9 Score PHQ-9: Total score 2 09/18/24 10:43 Thrive Assessment: Date of Thrive Assessment Date Thrive assessed 09/11/24 09/18/24 10:24 Currently or been in a relationship where the following occur: No concerns reported Const General: cooperative, comfortable, no acute distress, alert and awake; No confusion Orientation/consciousness: oriented to person, oriented to place, patient oriented x3 and No confusion HENMT Head: Yes normocephalic Ears: external ears normal and TM's normal bilaterally Face and sinus: No sinus tenderness Mouth: Normal oral and palatal mucosa present and tongue normal Teeth and gingiva: dentition normal and gingiva normal Throat: Yes posterior oropharynx normal, Yes tonsils normal and Yes uvula midline Eyes Conjunctivae: conjunctivae normal Sclerae: sclerae normal Pupils: Equal, round and reactive pupils present EOM: EOMs intact bilaterally Direct Ophthalmoscopy: No no photophobia Neck Neck: Yes no lymphadenopathy, No tender and Yes no JVD Thyroid: Thyroid normal Carotids: no bruits Chest Chest palpation & inspection: no tenderness Resp Effort & Inspection: normal respiratory effort, no audible wheezes, not labored and no stridor Auscultation: no crackles, no rales, no rhonchi and no wheezes Cardio Jugular venous distension: no JVD Rate: regular rate, not bradycardic and not tachycardic Rhythm: regular rhythm Bruits: no carotid bruits Peripheral pulses: Peripheral pulses 2+ throughout GI Inspection: Yes normal to inspection, No abdominal wall ecchymosis and No visible herniation Palpation (GI): Soft to palpation, nontender, no guarding, not rigid and No hepatosplenomegaly present Auscultation: normoactive bowel sounds General: Yes no CVA tenderness Back/Spine/Pelvis Back: no CVA tenderness and No back tenderness Cervical Spine: cervical ROM normal Thoracic/Lumbar Spine: thoracic and lumbar spine normal to inspection, straight leg raise negative bilaterally, No thoraco-lumbar ROM limited and No lumbar spinal tenderness Skin Lesions: no lesions Rashes: no rashes Wounds: no wounds Neuro General: oriented to person, oriented to place, patient oriented x3, CN's II-XI intact bilaterally and No confusion Cranial nerves: Yes Equal, round and reactive pupils present and Yes Normal accommodation reflex present Cognition (Neuro): normal cognition Speech: No Abnormal speech present Gait exam (Neuro): Normal gait present Motor exam (neuro): 5/5 motor strength present throughout Extrem Right upper extremity: full ROM; no cyanosis Left upper extremity: full ROM; no cyanosis Right lower extremity: no edema Left lower extremity: no edema Psych Appearance: grossly normal Mental Status: mental status grossly normal Affect: normal affect Attitude: cooperative Thought process: Normal thought process present Coding Level of Care Code Est Pt Prev Care 40-64y(78535) Diagnoses Annual physical exam Z00.00 Primary hypertension I10 Hypertension type: primary hypertension Class 3 obesity E66.813 JEFF (generalized anxiety disorder) F41.1 Additional Codes JEFF-7 Assessment Billing - JEFF-7 Assessment Tool: JEFF-7 Assessment 63189 ([id number]) Assessment & Plan Assessment & Plan (1) Annual physical exam: Code(s): Z00.00 - Encounter for general adult medical examination without abnormal findings Category: Medical Plan: As per HPI (2) HTN (hypertension): Code(s): I10 - Essential (primary) hypertension Category: Medical Qualifiers: Hypertension type: primary hypertension Qualified Code(s): I10 - Essential (primary) hypertension Plan: Patient's blood pressure remains elevated. He is asymptomatic though feels he is under lot of stress as of late. Will add on nifedipine for better blood pressure control. He will continue lisinopril 30, metoprolol and hydrochlorothiazide. Will also look for secondary form of hypertension thus will send for ultrasound of his kidneys to evaluate for renal artery stenosis \ Goal blood pressures to be below 140/90 (3) Class 3 obesity: Code(s): E66.813 - Obesity, class 3 Category: Medical Plan: Patient does understand his BMI is over 40 and has had a lot of difficulty losing weight. He is interested in starting Wegovy to help him with weight loss and help him gain control over his chronic diseases such as hypertension, obstructive sleep apnea , impaired glucose metabolism. (4) JEFF (generalized anxiety disorder): Code(s): F41.1 - Generalized anxiety disorder Category: Medical Plan: Patient's JEFF-7 score positive for moderate anxiety. He does report being under lot more stress as of late. He has stopped smoking which was a stress reliever for him. Will increase his Lexapro to 10 mg daily and does have access to lorazepam to use on a as needed basis. He plans on getting a different job which he feels will financially help him much more. Orders: Orders US renal doppler 09/18/24 I10 - Essential (primary) hypertension Medications: New blood pressure monitor As directed 1 ea 0RF I10 - Essential (primary) hypertension nifedipine ER 30 mg PO DAILY 30 days 30 tabs 3RF I10 - Essential (primary) hypertension semaglutide (weight loss) (Wegovy) administer weeks 1 through 4 of therapy 0.25 mg (0.5 mL) subcut QWEEK 4 weeks 2 mL 0RF E66.813 - Obesity, class 3, G47.33 - Obstructive sleep apnea (adult) (pediatric), I10 - Essential (primary) hypertension escitalopram oxalate (Lexapro) 10 mg PO DAILY 30 days 30 tabs 3RF F33.1 - Major depressive disorder, recurrent, moderate Refilled lisinopril 30 mg PO DAILY 90 tabs 1RF I10 - Essential (primary) hypertension Discontinued dulaglutide (Trulicity) Discontinued Reason: Change Referral Type 0.75 mg (0.5 mL) subcut QWEEK 4 weeks 2 mL 0RF R73.09 - Other abnormal glucose
== END 2024-09-18 11:08 | disposition home or self-care (01) ==
PROVIDERS: PCP Physician Assistant; Visit Provider Physician Assistant
DX: Z00.00 Encounter for general adult medical examination without abnormal findings (principal); I10 Essential (primary) hypertension; E66.813 Obesity, class 3; Z68.42 Body mass index [BMI] 45.0-49.9, adult; F41.1 Generalized anxiety disorder

== ENCOUNTER → 2024-09-18 09:57 | Outpatient (BNVA) | payer OTHER, SELFPAY | PROVIDERS: PCP Physician Assistant; Visit Provider Physician Assistant | DX: Z00.00 Encounter for general adult medical examination without abnormal findings (principal); I10 Essential (primary) hypertension; E66.813 Obesity, class 3; F41.1 Generalized anxiety disorder | CPT/HCPCS: 96127; 99396 ==

== ENCOUNTER 2024-11-02 07:53 | Outpatient (REF) | payer OTHER, SELFPAY ==
--- NOTE | ~2024-11-02 | US_ITS ---
CLINICAL HISTORY: I10 - Essential (primary) hypertension US renal duplex ultrasound Comparison: None Technique: Real time duplex ultrasound imaging was performed by the school office assistant. Multiple traveling sales representative static images were saved for review. Findings: Evaluation is limited secondary to body habitus. Aorta: Normal waveform, 82 cm/s. Right kidney: Normal size and echotexture, 10.1 cm length. Main renal artery peak systolic velocities (PSV), normal is <180cm/s: Proximal: Not visualized Mid: Not visualized Distal: 104 cm/s Max Renal PSV/Aorta PSV, normal is <3.5: 1.26 No pulsus parvus et tardus waveforms or turbulent flow. Max segmental resistive index: 0.62 Left kidney: Normal size and echotexture, 11.9 cm length. Main renal artery peak systolic velocities (PSV), normal is <180cm/s: Proximal: Not visualized Mid: Not visualized Distal: 118 cm/s Max Renal PSV/Aorta PSV, normal is <3.5: 1.43 No pulsus parvus et tardus waveforms or turbulent flow. Max segmental resistive index: 0.56 Impression: No sonographic evidence of renal artery stenosis. This document has been electronically signed by: Shea Sim MD on 11/05/2024 16:24:36
--- NOTE | ~2024-11-02 | US_ITS ---
CLINICAL HISTORY: I10 - Essential (primary) hypertension US renal duplex ultrasound Comparison: None Technique: Real time duplex ultrasound imaging was performed by the finish filer. Multiple senior patient account representative static images were saved for review. Findings: Evaluation is limited secondary to body habitus. Aorta: Normal waveform, 82 cm/s. Right kidney: Normal size and echotexture, 10.1 cm length. Main renal artery peak systolic velocities (PSV), normal is <180cm/s: Proximal: Not visualized Mid: Not visualized Distal: 104 cm/s Max Renal PSV/Aorta PSV, normal is <3.5: 1.26 No pulsus parvus et tardus waveforms or turbulent flow. Max segmental resistive index: 0.62 Left kidney: Normal size and echotexture, 11.9 cm length. Main renal artery peak systolic velocities (PSV), normal is <180cm/s: Proximal: Not visualized Mid: Not visualized Distal: 118 cm/s Max Renal PSV/Aorta PSV, normal is <3.5: 1.43 No pulsus parvus et tardus waveforms or turbulent flow. Max segmental resistive index: 0.56 Impression: No sonographic evidence of renal artery stenosis. This document has been electronically signed by: Shea Sim MD on 11/05/2024 16:24:36
== END 2024-11-02 07:54 | disposition home or self-care (01) ==
LOC: HO.US 07:53
PROVIDERS: PCP Physician Assistant; Visit Provider Physician Assistant
DX: I10 Essential (primary) hypertension (principal)
CPT/HCPCS: 76775; 93975

== ENCOUNTER → 2024-11-02 07:55 | Outpatient (BNV) | payer OTHER, SELFPAY | PROVIDERS: PCP Physician Assistant; Visit Provider Radiology Diagnostic Radiology | DX: I10 Essential (primary) hypertension (principal) | CPT/HCPCS: 76775 ==

== ENCOUNTER 2024-11-06 14:07 | Outpatient (AMB) | payer OTHER, SELFPAY ==
--- NOTE | 2024-11-06 14:09 | A.OFFPC_ITS ---
Vital Signs 11/06/24 14:17 Height 5 ft 9 in Weight 313 lb BMI 46.2 BP 174/96 H Blood Pressure Location Lt brachial Position Sitting Pulse 122 H Pulse Source Pulse Oximeter Pulse Oximetry (%) 97 Oxygen Delivery Method Room Air Intake Visit Reasons: f/u HTN/ Weight Video Production Assistant Required: No Accompanied by: Self / Same As Patient Allergies amlodipine Allergy (Unknown, Verified 11/06/24 14:18) GI side effects ibuprofen Allergy (Unknown, Verified 11/06/24 14:18) Hives citalopram [From Celexa] Adverse Reaction (Intermediate, Verified 11/06/24 14:18) Depression Tobacco use date assessed: 11/06/24 Dental Screening Dental Screen Date: 11/06/24 Did you have a dental visit in the last 12 months?: Yes Did you have a dental problem in the last 6 months where you did not have access to dental care?: No Was dental information given to patient?: Patient has dentist HPI f/u HTN/ Weight HPI Details Lopez is a 48 year-old male here today for weight check. Patient has a past medical history significant for essential hypertension, smoker, obesity, chronic lumbar spine pain. Recently started a new job and reports last stress in his life. Lumbar spondylosis: Continues to have lower lumbar spine pain. Does use topical Simone-Rock. Does report meloxicam was very helpful in reducing his pain. Will be considering physical therapy. Obesity: He reports Wegovy has been covered in recently started his 1st injection. He anticipates weight loss. ?? .. ? Hypertension: Today's blood pressure remains elevated. He does report monitoring his blood pressure at home and reports 140s systolic. Otherwise asymptomatic without any blurred vision headaches or chest discomforts. Continues on lisinopril 30 mg, metoprolol 25. We have added on nifedipine 30 mg for blood pressure control. We did send patient for renal ultrasound to evaluate for renal artery stenosis though no evidence of renal artery stenosis. ..Major depressive disorder/ anxiety:? H e reports he has been under more stress as of late. He does admit to a recent in the family. He continues on Lexapro 10 mg which seems to be effective. Does have lorazepam 0.5 mg available to him for high points of anxiety as well. .. ..Obstructive sleep apnea:? Has been farzana ated with CPAP nightly basis with good effect on his sleep.? Continues to follow pulmonology. [facility] Medical History Lumbar spondylosis Tobacco dependence Hypertension RYLIE (obstructive sleep apnea) HTN (hypertension) Surgical History No pertinent past surgical history Family History Father No problems noted. Mother Arthritis Asthma Paternal Grandfather Leukemia Substance use disorder Brother Substance use disorder Social History Housing: Apartment Alcohol intake: former Patient Tobacco Use Status: Former Tobacco user Tobacco use type: Cigarette Cigarette Packs Per Day: 0.5 Cigarettes Per Day: 10 Years Smoked: 27 e-Cigarette/Vaping Use: Never Used Second Hand Smoke Exposure: Yes Substance Use Type: Marijuana service: No Current occupational status: employed Current occupation: [employer] Cognitive needs: No Hearing needs: No Vision needs: No Questionnaire PHQ-9 Over the last 2 weeks, how often have you been bothered by any of the following problems? 1. Little interest or pleasure in doing things: not at all 2. Feeling down, depressed, or hopeless: not at all 3. Trouble falling or staying asleep, or sleeping too much: not at all 4. Feeling tired or having little energy: not at all 5. Poor appetite or overeating: not at all 6. Feeling bad about yourself - or that you are a failure or have let yourself or your family down: not at all 7. Trouble concentrating on things, such as reading the newspaper or watching television: not at all 8. Moving or speaking so slowly that other people could have noticed. Or the opposite - being so fidgety or restless that you have been moving around a lot more than usual: not at all 9. Thoughts that you would be better off or of hurting yourself in some way: not at all Total score: 0 Depression Screening Interpretation: Negative Depression Screening Done: Yes 02075 - PHQ-9 Billing: Yes Source: Developed by Drs. Bryson Stokes, EldaSid Ritter and colleagues, with an educational junior from [employer]. Thrive Questionnaire Date Thrive assessed: 11/06/24 I am a: Patient What is your living situation today?: I have a steady place to live Within the past 12 months, did the food you bought not last and you didn't have the money to get more?: Never true Within the past 12 months, did you worry whether your food would run out before you got money to buy more?: Never true Do you have trouble paying for medicines?: No Do you have trouble getting transportation to medical appointments?: Yes Do you have trouble paying your heating and electricity bill?: No Do you have trouble taking care of your child, family member or friend?: No Do you have trouble with day-to-day activities such as bathing, preparing meals, shopping, managing finances, etc.?: No Are you currently unemployed and looking for a job?: No Are you interested in more education?: No Please select the resources that you would like help with: None Currently or been in a relationship where the following occur: No concerns reported THRIVE Score: 1 AUDIT C Alcohol Use Questionnaire (AUDIT-C) 1. How often do you have a drink containing alcohol?: Never 3. How often do you have six or more drinks on one occasion?: Never Total Score: 0 JEFF-7 AMB Questionnaire JEFF-7 Date JEFF - 7 assessed: 11/06/24 Feeling nervous, anxious, or on edge: 0 = Not at all Not being able to stop or control worryin = Not at all Worrying too much about different things: 0 = Not at all Trouble relaxin = Not at all Being so restless that it is hard to sit still: 0 = Not at all Becoming easily annoyed or irritable: 0 = Not at all Feeling afraid as if something awful might happen: 0 = Not at all Total JEFF-7 score (0-4 normal; 5-9 mild; 10-14 moderate; 15-21 severe): 0 Source: Developed by Drs. Bryson Stokes, Sid Rebollar and colleagues, with an educational junior from [employer]. JEFF-7 Assessment Billing JEFF-7 Assessment Tool: JEFF-7 Assessment 08616 Review of Systems Const Denies headache(s) Eyes Denies loss of vision ENT Denies vertigo, Denies dizziness, Denies headache(s) and Denies sore throat Card Denies chest pain, Denies leg edema and Denies lightheadedness Resp Denies cough, Denies hemoptysis and Denies wheezing GI Denies abdominal pain, Denies melena, Denies constipation, Denies diarrhea and Denies vomiting Denies dysuria, Denies urinary frequency and Denies urinary urgency Musc Denies arthralgias, Denies joint swelling, Denies numbness and Denies tingling Neuro Denies Abnormal speech present, Denies behavioral changes, Denies vertigo, Denies dizziness, Denies headache(s), Denies loss of vision, Denies memory loss, Denies numbness and Denies tingling Psych Denies anxiety, Denies behavioral changes, Denies depression, Denies memory loss and Denies panic attacks Martin/Lymph Denies easy bleeding and Denies easy bruising Aller/Immun Denies wheezing Physical exam (Primary Care) Vital Signs: Last Vital Signs Pulse 122 H 11/06/24 14:17 BP 174/96 H 11/06/24 14:17 Pulse Ox 97 11/06/24 14:17 Oxygen Delivery Method Room Air 11/06/24 14:17 BMI result Body Mass Index 46.2 BMI Assessment/Plan discussion: High BMI High, discussed plan: lifestyle, weight reduction, dietary and physical activity Tobacco/Smoking Status: Tobacco use Status Tobacco use date assessed 11/06/24 11/06/24 14:19 Patient Tobacco Use Status Former Tobacco user 11/06/24 14:09 Tobacco use type Cigarette 11/06/24 14:09 e-Cigarette/Vaping Use Never Used 11/06/24 14:09 PHQ-9: PHQ-9 Score PHQ-9: Total score 0 11/06/24 14:23 Depression Screening Interpretation: Negative Thrive Assessment: Date of Thrive Assessment Date Thrive assessed 11/06/24 11/06/24 14:09 Currently or been in a relationship where the following occur: No concerns reported Const Other: OBESE General: healthy appearing, no acute distress, alert and awake Nutritional Appearance: well nourished Orientation/consciousness: oriented to person, oriented to place and oriented to time HENMT Ears: TM's normal bilaterally General nose exam: Normal nasal mucous membranes and turbinates present Eyes Conjunctivae: conjunctivae normal Sclerae: sclerae normal Pupils: Equal, round and reactive pupils present Neck Neck: Yes no lymphadenopathy and Yes no JVD Thyroid: Thyroid normal Carotids: no bruits Resp Effort & Inspection: normal respiratory effort and not tachypneic Auscultation: no crackles, no rales, no rhonchi and no wheezes Cardio Rate: regular rate Rhythm: regular rhythm Heart sounds: no murmurs and normal S1 and S2 GI Palpation (GI): Soft to palpation, nontender, no hepatomegaly and no splenomegaly Auscultation: normal bowel sounds Skin General skin exam: no rashes or lesions noted and dry skin Neuro General: oriented to person, oriented to place and oriented to time Cranial nerves: Yes Equal, round and reactive pupils present Speech: No Abnormal speech present Gait exam (Neuro): Normal gait present Motor exam (neuro): no tremor noted Extrem Right upper extremity: full ROM Left upper extremity: full ROM Right lower extremity: full ROM; no edema Left lower extremity: full ROM; no edema Psych Mental Status: mental status grossly normal Speech and movement: Normal speech and movement present Affect: normal affect Attitude: cooperative Thought process: Normal thought process present Coding Level of Care Code Est Pt Level 4 (78852) Diagnoses Primary hypertension I10 Hypertension type: primary hypertension Class 3 obesity E66.813 Additional Codes JEFF-7 Assessment Billing - JEFF-7 Assessment Tool: JEFF-7 Assessment 01505 ([id number]) PHQ-9 - 47271 - PHQ-9 Billing: Yes ([id number]) Assessment & Plan Assessment & Plan (1) HTN (hypertension): Code(s): I10 - Essential (primary) hypertension Category: Medical Qualifiers: Hypertension type: primary hypertension Qualified Code(s): I10 - Essential (primary) hypertension Plan: Patient's blood pressure readings has been slightly better at home 140 systolic. Today in office blood pressure elevated. He is otherwise asymptomatic without any blurred vision, headaches, chest discomforts. We have added nifedipine 30 mg and blood pressure seem to been better controlled. He will continue lisinopril 30, metoprolol and hydrochlorothiazide. We have done a bilateral renal ultrasound though did not reveal renal artery stenosis Goal blood pressures to be below 140/90 (2) Class 3 obesity: Code(s): E66.813 - Obesity, class 3 Category: Medical Plan: Has recently started on Wegovy and anticipates weight loss. He is motivated to be more physically active and adapt to better eating habits. He also does have obstructive sleep apnea that he would like to control with weight loss as well. Will follow-up 2 months to evaluate weight and medical benefit he is getting from GLP 1 Orders: Orders Microalbumin, Random (w Creat) 11/06/24 I10 - Essential (primary) hypertension Comprehensive [place]. Panel Fast 11/06/24 I10 - Essential (primary) hypertension Complete Blood Count no Diff 11/06/24 I10 - Essential (primary) hypertension Hemoglobin A1c 11/06/24 R73.09 - Other abnormal glucose Medications: New hydrochlorothiazide 25 mg PO DAILY 90 tabs 1RF 90 days I10 - Essential (primary) hypertension Discontinued hydrochlorothiazide Discontinued Reason: Doctor's Order 12.5 mg PO DAILY 90 days 90 tabs 1RF I10 - Essential (primary) hypertension
[2024-11-06 14:17] VITALS: BP 174/96; PULSE 122; O2SAT 97; BMI 46.2
== END 2024-11-06 14:42 | disposition home or self-care (01) ==
PROVIDERS: PCP Physician Assistant; Visit Provider Physician Assistant
DX: I10 Essential (primary) hypertension (principal); E66.813 Obesity, class 3; Z68.42 Body mass index [BMI] 45.0-49.9, adult

== ENCOUNTER 2025-04-02 15:00 | Outpatient (AMB) | payer OTHER, SELFPAY ==
--- NOTE | 2025-04-02 15:08 | A.OFFPC_ITS ---
Vital Signs 04/02/25 15:11 Height 5 ft 9 in Weight 312 lb BMI 46.1 BP 140/68 H Blood Pressure Location Lt brachial Position Sitting Pulse 80 Pulse Source Pulse Oximeter Temp 97.3 F Temp Source Temporal Artery Scan Pulse Oximetry (%) 98 Oxygen Delivery Method Room Air Intake Visit Reasons: Weight loss med, blood pressure check Intake Note: Patient is here to follow up on Weight loss med, blood pressure check. Application Coordinator Required: No Dancer Or Choreographer: Not Required per policy Accompanied by: Self / Same As Patient Allergies amlodipine Allergy (Unknown, Verified 04/02/25 15:19) GI side effects ibuprofen Allergy (Unknown, Verified 04/02/25 15:19) Hives citalopram [From Celexa] Adverse Reaction (Intermediate, Verified 04/02/25 15:19) Depression Medication List - Last Reconciled 04/02/25 by Chun Bernal PA-C blood pressure monitor As directed cetirizine (Zyrtec) 10 mg PO DAILY 90 days escitalopram oxalate (Lexapro) 10 mg PO DAILY 30 days fluticasone propionate 50 mcg/actuation (Flonase Allergy Relief) 2 sprays intranasal BID 30 days gabapentin 300 mg PO BID 90 days hydrochlorothiazide 25 mg PO DAILY 90 days lisinopril 30 mg PO DAILY lorazepam 0.5 mg PO DAILY PRN 7 days meloxicam 15 mg PO DAILY 30 days metoprolol succinate ER 25 mg PO DAILY nifedipine ER 30 mg PO DAILY 30 days semaglutide (weight loss) (Wegovy) 0.5 mg (0.5 mL) subcut QWEEK 4 weeks semaglutide (weight loss) (Wegovy) 0.25 mg (0.5 mL) subcut QWEEK 4 weeks Tobacco use date assessed: 04/02/25 Dental Screening Dental Screen Date: 11/06/24 HPI Weight loss med, blood pressure check HPI Details Lopez is a 49 year-old male here today for weight check. Patient has a past medical history significant for essential hypertension, smoker, obesity, chronic lumbar spine pain. Lumbar spondylosis: Continues to have lower lumbar spine pain. Does use topical Simone-Rock. Does report meloxicam was very helpful in reducing his pain. Will be considering physical therapy. Class 3 obesity: He initiated weight loss treatment with injectable medication three weeks ago and reports reduced appetite since. This change surprised him as he initially ate limited amounts, such as only consuming a cheeseburger at 5 PM, and noted a reduced interest in food despite having meals planned. This effect is attributed to the effectiveness of the injection in suppressing appetite. He also implemented lifestyle changes, including eliminating sugar from his diet, believing it adversely affects health. He reported a challenging adjustment period due to sugar withdrawal but currently does not experience sugar cravings. Regular physical activity has been added to his routine by walking in a local park to support weight loss and improve general health. His weight goal is a reduction from 312 pounds to 280 pounds, acknowledging this as a substantial aim. ?? .. ? Hypertension: Today's blood pressure remains slightly elevated though much improved from previous visits. He is starting his weight loss journey in hopes to lose enough weight to reduce his blood pressure medication.. He does report monitoring his blood pressure at home and reports 140s systolic. Otherwise asymptomatic without any blurred vision headaches or chest discomforts. We did send patient for renal ultrasound to evaluate for renal artery stenosis though no evidence of renal artery stenosis. ..Major depressive disorder/ anxiety:? H radha reports an a decrease in his d epression since starting Wegovy He continues on Lexapro 10 mg which seems to be effective. Does have lorazepam 0.5 mg available to him for high points of anxiety as well. .. ..Obstructive sleep apnea:? Has been farzana ated with CPAP nightly basis with good effect on his sleep.? Continues to follow pulmonology. [facility] Medical History Lumbar spondylosis Tobacco dependence Hypertension RYLIE (obstructive sleep apnea) HTN (hypertension) Surgical History No pertinent past surgical history Family History Father No problems noted. Mother Arthritis Asthma Paternal Grandfather Leukemia Substance use disorder Brother Substance use disorder Social History Housing: Apartment Alcohol intake: former Patient Tobacco Use Status: Former Tobacco user Tobacco use type: Cigarette Cigarette Packs Per Day: 0.5 Cigarettes Per Day: 10 Years Smoked: 27 e-Cigarette/Vaping Use: Never Used Second Hand Smoke Exposure: Yes Substance Use Type: Marijuana service: No Current occupational status: employed Current occupation: N Cognitive needs: No Hearing needs: No Vision needs: No Questionnaire PHQ-9 Over the last 2 weeks, how often have you been bothered by any of the following problems? 1. Little interest or pleasure in doing things: not at all 2. Feeling down, depressed, or hopeless: not at all 3. Trouble falling or staying asleep, or sleeping too much: not at all 4. Feeling tired or having little energy: not at all 5. Poor appetite or overeating: not at all 6. Feeling bad about yourself - or that you are a failure or have let yourself or your family down: not at all 7. Trouble concentrating on things, such as reading the newspaper or watching television: not at all 8. Moving or speaking so slowly that other people could have noticed. Or the opposite - being so fidgety or restless that you have been moving around a lot more than usual: not at all 9. Thoughts that you would be better off or of hurting yourself in some way: not at all Total score: 0 Depression Screening Interpretation: Negative Depression Screening Done: Yes 73934 - PHQ-9 Billing: Yes Source: Developed by Drs. Bryson Stokes, Elda Prince, Sid Acevedo and colleagues, with an educational junior from [employer]. Thrive Questionnaire Date Thrive assessed: 03/31/25 I am a: Patient What is your living situation today?: I have a steady place to live Within the past 12 months, did the food you bought not last and you didn't have the money to get more?: Often true Within the past 12 months, did you worry whether your food would run out before you got money to buy more?: Never true Do you have trouble paying for medicines?: No Do you have trouble getting transportation to medical appointments?: No Do you have trouble paying your heating and electricity bill?: No Do you have trouble taking care of your child, family member or friend?: No Do you have trouble with day-to-day activities such as bathing, preparing meals, shopping, managing finances, etc.?: No Are you currently unemployed and looking for a job?: I choose not to answer this question Are you interested in more education?: No Please select the resources that you would like help with: None Currently or been in a relationship where the following occur: No concerns reported THRIVE Score: 1 AUDIT C Alcohol Use Questionnaire (AUDIT-C) 1. How often do you have a drink containing alcohol?: Never Total Score: 0 JEFF-7 AMB Questionnaire JEFF-7 Date JEFF - 7 assessed: 11/06/24 Feeling nervous, anxious, or on edge: 0 = Not at all Not being able to stop or control worryin = Not at all Worrying too much about different things: 0 = Not at all Trouble relaxin = Not at all Being so restless that it is hard to sit still: 1 = Several days Becoming easily annoyed or irritable: 0 = Not at all Feeling afraid as if something awful might happen: 0 = Not at all Total JEFF-7 score (0-4 normal; 5-9 mild; 10-14 moderate; 15-21 severe): 1 Source: Developed by Drs. Bryson Stokes, Elda Prince, Sid Acevedo and colleagues, with an educational junior from [employer]. Review of Systems Const Denies headache(s) Eyes Denies loss of vision ENT Denies vertigo, Denies dizziness, Denies headache(s) and Denies sore throat Card Denies chest pain, Denies leg edema and Denies lightheadedness Resp Denies cough, Denies hemoptysis and Denies wheezing GI Denies abdominal pain, Denies melena, Denies constipation, Denies diarrhea and Denies vomiting Denies dysuria, Denies urinary frequency and Denies urinary urgency Musc Denies arthralgias, Denies joint swelling, Denies numbness and Denies tingling Neuro Denies Abnormal speech present, Denies behavioral changes, Denies vertigo, Denies dizziness, Denies headache(s), Denies loss of vision, Denies memory loss, Denies numbness and Denies tingling Psych Denies anxiety, Denies behavioral changes, Denies depression, Denies memory loss and Denies panic attacks Martin/Lymph Denies easy bleeding and Denies easy bruising Aller/Immun Denies wheezing Physical exam (Primary Care) Vital Signs: Last Vital Signs Temp 97.3 F 04/02/25 15:11 Pulse 80 04/02/25 15:11 BP 140/68 H 04/02/25 15:11 Pulse Ox 98 04/02/25 15:11 Oxygen Delivery Method Room Air 04/02/25 15:11 BMI result Body Mass Index 46.1 BMI Assessment/Plan discussion: High BMI High, discussed plan: lifestyle, weight reduction, dietary and physical activity Tobacco/Smoking Status: Tobacco use Status Tobacco use date assessed 04/02/25 04/02/25 15:16 Patient Tobacco Use Status Former Tobacco user 04/02/25 15:16 Tobacco use type Cigarette 04/02/25 15:16 e-Cigarette/Vaping Use Never Used 04/02/25 15:16 PHQ-9: PHQ-9 Score PHQ-9: Total score 0 04/02/25 15:16 Depression Screening Interpretation: Negative Thrive Assessment: Date of Thrive Assessment Date Thrive assessed 03/31/25 04/02/25 15:16 Currently or been in a relationship where the following occur: No concerns reported Const Other: Obese General: healthy appearing, no acute distress, alert and awake Nutritional Appearance: well nourished Orientation/consciousness: oriented to person, oriented to place and oriented to time HENMT Ears: TM's normal bilaterally General nose exam: Normal nasal mucous membranes and turbinates present Eyes Conjunctivae: conjunctivae normal Sclerae: sclerae normal Pupils: Equal, round and reactive pupils present Neck Neck: Yes no lymphadenopathy and Yes no JVD Thyroid: Thyroid normal Carotids: no bruits Resp Effort & Inspection: normal respiratory effort and not tachypneic Auscultation: no crackles, no rales, no rhonchi and no wheezes Cardio Rate: regular rate Rhythm: regular rhythm Heart sounds: no murmurs and normal S1 and S2 GI Palpation (GI): Soft to palpation, nontender, no hepatomegaly and no s plenomegaly Auscultation: normal bowel sounds Skin General skin exam: no rashes or lesions noted and dry skin Neuro General: oriented to person, oriented to place and oriented to time Cranial nerves: Yes Equal, round and reactive pupils present Speech: No Abnormal speech present Gait exam (Neuro): Normal gait present Motor exam (neuro): no tremor noted Extrem Right upper extremity: full ROM Left upper extremity: full ROM Right lower extremity: full ROM; no edema Left lower extremity: full ROM; no edema Psych Mental Status: mental status grossly normal Speech and movement: Normal speech and movement present Affect: normal affect Attitude: cooperative Thought process: Normal thought process present Coding Level of Care Code Est Pt Level 4 (65856) Diagnoses Primary hypertension I10 Hypertension type: primary hypertension Class 3 obesity E66.813 MDD (major depressive disorder), recurrent episode, moderate F33.1 Lumbar spondylosis M47.816 Additional Codes PHQ-9 - 62400 - PHQ-9 Billing: Yes ([id number]) Assessment & Plan Assessment & Plan (1) HTN (hypertension): Code(s): I10 - Essential (primary) hypertension Category: Medical Qualifiers: Hypertension type: primary hypertension Qualified Code(s): I10 - Essential (primary) hypertension Plan: Patient's blood pressure readings has been slightly better at home 140 systolic. Today's blood pressure 140 systolic which is much improved since previous. He is otherwise asymptomatic without any blurred vision, headaches, chest d iscomforts. We plan on working on weight reduction particularly to help him reduce his blood pressure your and thus reduce blood pressure medication. We have done a bilateral renal ultrasound though did not reveal renal artery stenosis Goal blood pressures to be below 140/90 (2) Class 3 obesity: Code(s): E66.813 - Obesity, class 3 Category: Medical Plan: The patient has started injectable medication Ozempic to assist with weight loss and is experiencing reduced appetite. He is implementing dietary changes by cutting out sugar and engaging in regular walking. Plans include monitoring weight, and considering dosage adjustments to optimize results. (3) MDD (major depressive disorder), recurrent episode, moderate: Code(s): F33.1 - Major depressive disorder, recurrent, moderate Category: Medical Plan: Major depressive disorder has been existing condition for him. Interestingly enough he feels his depression has been a bit better since starting GLP 1 weight loss medication. Will also be considering cognitive behavioral therapy. (4) Lumbar spondylosis: Code(s): M47.816 - Spondylosis without myelopathy or radiculopathy, lumbar region Category: Medical Plan: As per HPI patient continues to have lower lumbar spine pain, he relates this to his weight. Does use topical treatment. He is considering using FMLA for accommodations at work for his back pain. He does report meloxicam was helpful for him. Continues with gabapentin as well. Orders: Orders Testosterone, Free/Total Today E66.813 - Obesity, class 3
[2025-04-02 15:11] VITALS: BP 140/68; PULSE 80; TEMP 36.3; O2SAT 98; BMI 46.1
== END 2025-04-02 15:46 | disposition home or self-care (01) ==
LOC: HO.HMCH 15:01
PROVIDERS: PCP Physician Assistant; Visit Provider Physician Assistant
DX: I10 Essential (primary) hypertension (principal); E66.813 Obesity, class 3; F33.1 Major depressive disorder, recurrent, moderate; Z68.42 Body mass index [BMI] 45.0-49.9, adult; M47.816 Spondylosis without myelopathy or radiculopathy, lumbar region

== ENCOUNTER → 2025-04-02 15:00 | Outpatient (BNVA) | payer OTHER, SELFPAY | PROVIDERS: PCP Physician Assistant; Visit Provider Physician Assistant | DX: I10 Essential (primary) hypertension (principal); E66.813 Obesity, class 3; F33.1 Major depressive disorder, recurrent, moderate; M47.816 Spondylosis without myelopathy or radiculopathy, lumbar region; Z68.42 Body mass index [BMI] 45.0-49.9, adult | CPT/HCPCS: 96127; 99212 ==

== ENCOUNTER 2025-05-22 08:27 | Outpatient (AMB) | payer OTHER, SELFPAY ==
--- OUTSIDE RECORDS SUMMARY | 2025-05-22 08:40 | XMS_ITS | Clinical Summary ---
Author Organization [facility] Address [address] [place] [id number] Phone Care Team Providers Care Machine Sewer Name Role Phone Chun Bernal Primary Care Provider + Social History Tobacco Use Types Packs/Day Years Used Date Smoking Tobacco: Never Assessed Education Answer Date Recorded Are you interested in more education? Not on mehul e 02/25/2023 Are you concerned about learning? Not on file 02/25/2023 No 02/25/2023 No 02/25/2023 Digital Access Answer Date Recorded No 03/28/2023 No 03/28/2023 No 03/28/2023 Reliable internet access at home? Not on file 03/28/2023 Device with a working camera? Not on file Sex and Gender Information Value Date Recorded Sex Assigned at Not on file Legal Sex Male 9:29 PM EDT Gender Identity Not on file Sexual Orientation Not on file Plan of Treatment Not on file Medical Devices Not on file Insurance [facility] Care Teams Machine Sewer Relationship Specialty Start Date End Date Chun Bernal PA [address] [place] [address] PCP - General 07/09/20 Additional Source Comments The information contained in this document represents components of the legal health record. It is not the complete legal health record.[facility]
--- NOTE | 2025-05-22 09:19 | A.OFFVIS_ITS ---
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 BMI 45.8 Allergies amlodipine Allergy (Unknown, Verified 05/22/25 09:19) GI side effects ibuprofen Allergy (Unknown, Verified 05/22/25 09:19) Hives citalopram (From Celexa) Adverse Reaction (Intermediate, Verified 05/22/25 09:19) Depression Medication List - Last Reconciled 05/22/25 by Yohannes Littlejohn MD blood pressure monitor As directed cetirizine (Zyrtec) 10 mg PO DAILY 90 days escitalopram oxalate (Lexapro) 10 mg PO DAILY 30 days fluticasone propionate 50 mcg/actuation (Flonase Allergy Relief) 2 sprays intranasal BID 30 days gabapentin 300 mg PO BID 90 days hydrochlorothiazide 25 mg PO DAILY 90 days lisinopril 30 mg PO DAILY lorazepam 0.5 mg PO DAILY PRN 7 days meloxicam 15 mg PO DAILY 30 days metoprolol succinate ER 25 mg PO DAILY nifedipine ER 30 mg PO DAILY 30 days HPI HPI 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 MWL BMI 45.8: Details: Start time: 9.15am, End time: 9.53am I spent 33 minutes speaking with the patient on the phone plus an additional 5 minutes reviewing and updating records for a total of 38 minutes HPI Comments Details: Previous weight loss efforts: self diets and exercise Wakes up: 4am, Sleeps: 8pm Breakfast: skips Lunch: 1pm (sandwich) Dinner: 7pm (chicken with vegetables) Snacks: 4pm (occasionally banana) Exercise: none Beverages: Coffee: (2 cups/d with cream), Tea: none, Soda: regular Pepsi (1/2 lt/d), Juice: apple juice 2/wk, ETOH: none PFSH Medical History (Updated 05/22/25 @ 09:24 by Yohannes Littlejohn MD) Morbid obesity Lumbar spondylosis Tobacco dependence Hypertension RYLIE (obstructive sleep apnea) HTN (hypertension) Surgical History No pertinent past surgical history Family History Father No problems noted. Mother Arthritis Asthma Paternal Grandfather Leukemia Substance use disorder Brother Substance use disorder Social History Housing: Apartment Alcohol intake: former Patient Tobacco Use Status: Former Tobacco user Tobacco use type: Cigarette Cigarette Packs Per Day: 0.5 Cigarettes Per Day: 10 Years Smoked: 27 e-Cigarette/Vaping Use: Never Used Second Hand Smoke Exposure: Yes Substance Use Type: Marijuana service: No Current occupational status: employed Current occupation: [employer] Cognitive needs: No Hearing needs: No Vision needs: No Telehealth Telehealth Telehealth Platform: Telephone Location of provider rendering services: practice address Location of patient: address on file Patient Identification confirmed using: Name, : Yes Telehealth method: voice only Patient verbally consented to treatment: Yes Patient verbally consented to billing insurance company: Yes Patient informed of any privacy concerns related to visit: Yes Minutes spent on Phone/Video with Pt.: 33 Assessment & Plan Assessment & Plan (1) Morbid obesity: Code(s): E66.01 - Morbid (severe) obesity due to excess calories Category: Medical Plan: 1. Please measure your blood pressure every morning and send me the readings daily. 2.Nutritional counseling. Start with one premade PREMIER protein (buy at [employer], or [employer], or [employer]) shake (8oz of PREMIER and NOT the whole bottle) at 5am-7am, 1 protein bar (16gr Fit Crunch protein bars, buy at [employer] or [employer]) at 8am-10am, another premade PREMIER protein (buy at [employer], or [employer], or [employer]) shake () 8oz of PREMIER and NOT the whole bottle) at 11am-1pm, another Fit Crunch protein bar at 2pm-4pm, dinner at 5pm (10 forks of protein and 10 forks of salad/vegetables) and another HALF Fit Crunch protein bar after dinner at 7pm-8pm. So you do 2 protein shakes, 2.5 protein bars and one meal per day. Meal to include lean meat (beef, fish, pork, turkey, chicken), or yi yogurt, or egg whites, or beans with a salad with olive oil and fruits (berries, pears, apples, kiwi). Avoid salt, breads, potatoes, rice, pasta, desserts. 3. Each shake would be drunk slowly, like coffee in a period of 2 hours. 4. Cut each bar in 4 pieces and eat each piece in 30min to make each bar last 2 hours. 5. I emphasized the importance of measuring accurately the food portion and measure it when serving the food in plate 6. The meal portions include 10 full-size forks of meat and 10 full-size forks of salad. You always eat the meat portion but you can replace up to 5 forks for salad/vegetables with rice, potatoes or pasta, or a fruit if you like. The less you do it the better weight loss will be. 7. One full-size fork is what it can be scooped on the fork without falling aside and not what can be bit with the fork. Use regular forks like those you find in a typical restaurant. 8. Please buy the body composition scale we discussed and send me weight measurements as soon as possible and then once a week. Always include your diet and exercise plan. 9. Start walking outside daily, tracking calories with a goal of 300 calories per day, daily. Goal is to burn 2000 calories per week on exercise, which means either 300 calories daily, or 400 calories 5 days per week, or 500 calories 4 days per week, or 650 calories 3 days per week. 10. The best choice would be to purchase a stationary bike at home that can track calories. If you get one, please start stationary bike at a resistance level of 4.0 Increase level by 1.0 every 3 min to a max level of 10.0. Stay at this level for 3 min and then return to level 4.0 and repeat same steps until 300 calories are burned. Goal is to burn 2000 calories per week on exercise 11. Goal is to lose at least 1.5-2lbs per week 12. Goal to lose at least 10% of your weight, which is about 30lbs. Minimum weight goal: 280lbs 13. Please follow the diet plan exactly without any change. If you don't like something about the plan or you feel hungry you need to communicate with me so I can help you revise the plan. You should not change the plan yourself
[2025-05-22 09:31] VITALS: BMI 45.7
== END 2025-05-22 09:55 | disposition home or self-care (01) ==
LOC: HO.HBS 08:27
PROVIDERS: PCP Physician Assistant; Visit Provider Surgery
DX: E66.01 Morbid (severe) obesity due to excess calories (principal)
CPT/HCPCS: 99203

== ENCOUNTER 2025-06-27 14:14 | Outpatient (AMB) | payer OTHER, SELFPAY ==
[2025-06-27 14:18] VITALS: BP 146/94; PULSE 95; TEMP 36.4; O2SAT 98; BMI 47.0
--- NOTE | 2025-06-27 14:18 | A.OFFPC_ITS ---
Vital Signs 06/27/25 14:18 Height 5 ft 9 in Weight 318 lb 2 oz BMI 47.0 BP 146/94 H Blood Pressure Location Lt brachial Position Sitting Pulse 95 Pulse Source Pulse Oximeter Temp 97.5 F Temp Source Temporal Artery Scan Pulse Oximetry (%) 98 Oxygen Delivery Method Room Air Intake Visit Reasons: weight check Allergies amlodipine Allergy (Unknown, Verified 06/27/25 14:46) GI side effects ibuprofen Allergy (Unknown, Verified 06/27/25 14:46) Hives citalopram (From Celexa) Adverse Reaction (Intermediate, Verified 06/27/25 14:46) Depression Medication List - Last Reconciled 06/27/25 by Chun Bernal PA-C blood pressure monitor As directed cetirizine (Zyrtec) 10 mg PO DAILY 90 days escitalopram oxalate (Lexapro) 10 mg PO DAILY 30 days fluticasone propionate 50 mcg/actuation (Flonase Allergy Relief) 2 sprays intranasal BID 30 days gabapentin 300 mg PO BID 90 days hydrochlorothiazide 25 mg PO DAILY 90 days lisinopril 30 mg PO DAILY lorazepam 0.5 mg PO DAILY PRN 7 days meloxicam 15 mg PO DAILY 30 days metoprolol succinate ER 25 mg PO DAILY nifedipine ER 30 mg PO DAILY 30 days Tobacco use date assessed: 06/27/25 Dental Screening Dental Screen Date: 06/27/25 Did you have a dental visit in the last 12 months?: No Did you have a dental problem in the last 6 months where you did not have access to dental care?: No Was dental information given to patient?: Patient has dentist HPI weight check HPI Details Lopez is a 49 year-old male here today for weight check. Patient has a past medical history significant for essential hypertension, smoker, class 3 obesity, obstructive sleep apnea chronic lumbar spine pain. Class 3 obesity/ RYLIE:: Unfortunately was not able to get GLP 1 medication covered. Was previously on Wegovy and did notice attend to 15 lb weight loss and was feeling much better Now and weight management program here in [place] in his spoke with the bariatric surgeon about diet. He is interested in restarting a GLP 1 indicated for obstructive sleep apnea, obesity and hypertension. Will start Zepbound 2.5 mg weekly and up titrate per response ?? .. ? Hypertension: Today's blood pressure remains slightly elevated though much improved from previous visits. He is starting his weight loss journey in hopes to lose enough weight to reduce his blood pressure medication.. He does report monitoring his blood pressure at home and reports 140s systolic. Otherwise asymptomatic without any blurred vision headaches or chest discomforts. We did send patient for renal ultrasound to evaluate for renal artery stenosis though no evidence of renal artery stenosis. ..Major depressive disorder/ anxiety:? Jey garcia reports an a decrease in his depression since starting Wegovy He continues on Lexapro 10 mg which seems to be effective. Does have lorazepam 0.5 mg available to him for high points of anxiety as well. .. ..Obstructive sleep apnea:? Has been farzana ated with CPAP nightly basis with good effect on his sleep.? Continues to follow pulmonology. [facility] Medical History Morbid obesity Lumbar spondylosis Tobacco dependence Hypertension RYLIE (obstructive sleep apnea) HTN (hypertension) Surgical History No pertinent past surgical history Family History Father No problems noted. Mother Arthritis Asthma Paternal Grandfather Leukemia Substance use disorder Brother Substance use disorder Social History Housing: Apartment Alcohol intake: former Patient Tobacco Use Status: Former Tobacco user Tobacco use type: Cigarette Cigarette Packs Per Day: 0.5 Cigarettes Per Day: 10 Years Smoked: 27 e-Cigarette/Vaping Use: Never Used Second Hand Smoke Exposure: Yes Substance Use Type: Marijuana service: No Current occupational status: employed Current occupation: [employer] Cognitive needs: No Hearing needs: No Vision needs: No Questionnaire PHQ-9 Over the last 2 weeks, how often have you been bothered by any of the following problems? 1. Little interest or pleasure in doing things: not at all 2. Feeling down, depressed, or hopeless: not at all 3. Trouble falling or staying asleep, or sleeping too much: not at all 4. Feeling tired or having little energy: not at all 5. Poor appetite or overeating: not at all 6. Feeling bad about yourself - or that you are a failure or have let yourself or your family down: not at all 7. Trouble concentrating on things, such as reading the newspaper or watching television: not at all 8. Moving or speaking so slowly that other people could have noticed. Or the opposite - being so fidgety or restless that you have been moving around a lot more than usual: not at all 9. Thoughts that you would be better off or of hurting yourself in some way: not at all Total score: 0 Depression Screening Interpretation: Negative Depression Screening Done: Yes 48240 - PHQ-9 Billing: Yes Source: Developed by Drs. Bryson Stokes, Elda Prince, Sid Acevedo and colleagues, with an educational junior from [employer]. Thrive Questionnaire Date Thrive assessed: 03/31/25 I am a: Patient What is your living situation today?: I have a steady place to live Within the past 12 months, did the food you bought not last and you didn't have the money to get more?: Often true Within the past 12 months, did you worry whether your food would run out before you got money to buy more?: Never true Do you have trouble paying for medicines?: No Do you have trouble getting transportation to medical appointments?: No Do you have trouble paying your heating and electricity bill?: No Do you have trouble taking care of your child, family member or friend?: No Do you have trouble with day-to-day activities such as bathing, preparing meals, shopping, managing finances, etc.?: No Are you currently unemployed and looking for a job?: I choose not to answer this question Are you interested in more education?: No Please select the resources that you would like help with: None Currently or been in a relationship where the following occur: No concerns reported THRIVE Score: 1 AUDIT C Alcohol Use Questionnaire (AUDIT-C) 1. How often do you have a drink containing alcohol?: Never 3. How often do you have six or more drinks on one occasion?: Never Total Score: 0 JEFF-7 AMB Questionnaire JEFF-7 Date JEFF - 7 assessed: 11/06/24 Feeling nervous, anxious, or on edge: 0 = Not at all Not being able to stop or control worryin = Not at all Worrying too much about different things: 0 = Not at all Trouble relaxin = Not at all Being so restless that it is hard to sit still: 1 = Several days Becoming easily annoyed or irritable: 0 = Not at all Feeling afraid as if something awful might happen: 0 = Not at all Total JEFF-7 score (0-4 normal; 5-9 mild; 10-14 moderate; 15-21 severe): 1 Source: Developed by Drs. Bryson Stokes, Elda Prince, Sid Acevedo and colleagues, with an educational junior from [employer]. Review of Systems Const Denies headache(s) Eyes Denies loss of vision ENT Denies vertigo, Denies dizziness, Denies headache(s) and Denies sore throat Card Denies chest pain, Denies leg edema and Denies lightheadedness Resp Denies cough, Denies hemoptysis and Denies wheezing GI Denies abdominal pain, Denies melena, Denies constipation, Denies diarrhea and Denies vomiting Denies dysuria, Denies urinary frequency and Denies urinary urgency Musc Denies arthralgias, Denies joint swelling, Denies numbness and Denies tingling Neuro Denies Abnormal speech present, Denies behavioral changes, Denies vertigo, Denies dizziness, Denies headache(s), Denies loss of vision, Denies memory loss, Denies numbness and Denies tingling Psych Denies anxiety, Denies behavioral changes, Denies depression, Denies memory loss and Denies panic attacks Martin/Lymph Denies easy bleeding and Denies easy bruising Aller/Immun Denies wheezing Physical exam (Primary Care) Vital Signs: Last Vital Signs Temp 97.5 F 06/27/25 14:18 Pulse 95 06/27/25 14:18 BP 146/94 H 06/27/25 14:18 Pulse Ox 98 06/27/25 14:18 Oxygen Delivery Method Room Air 06/27/25 14:18 BMI result Body Mass Index 47.0 Tobacco/Smoking Status: Tobacco use Status Tobacco use date assessed 06/27/25 06/27/25 14:19 Patient Tobacco Use Status Former Tobacco user 06/27/25 14:19 Tobacco use type Cigarette 06/27/25 14:19 e-Cigarette/Vaping Use Never Used 06/27/25 14:19 PHQ-9: PHQ-9 Score PHQ-9: Total score 0 06/27/25 15:13 Depression Screening Interpretation: Negative Thrive Assessment: Date of Thrive Assessment Date Thrive assessed 03/31/25 06/27/25 14:19 Currently or been in a relationship where the following occur: No concerns reported Const General: healthy appearing, no acute distress, alert and awake Nutritional Appearance: well nourished Orientation/consciousness: oriented to person, oriented to place and oriented to time HENMT Ears: TM's normal bilaterally General nose exam: Normal nasal mucous membranes and turbinates present Eyes Conjunctivae: conjunctivae normal Sclerae: sclerae normal Pupils: Equal, round and reactive pupils present Neck Neck: Yes no lymphadenopathy and Yes no JVD Thyroid: Thyroid normal Carotids: no bruits Resp Effort & Inspection: normal respiratory effort and not tachypneic Auscultation: no crackles, no rales, no rhonchi and no wheezes Cardio Rate: regular rate Rhythm: regular rhythm Heart sounds: no murmurs and normal S1 and S2 GI Palpation (GI): Soft to palpation, nontender, no hepatomegaly and no splenomegaly Auscultation: normal bowel sounds Skin General skin exam: no rashes or lesions noted and dry skin Neuro General: oriented to person, oriented to place and oriented to time Cranial nerves: Yes Equal, round and reactive pupils present Speech: No Abnormal speech present Gait exam (Neuro): Normal gait present Motor exam (neuro): no tremor noted Extrem Right upper extremity: full ROM Left upper extremity: full ROM Right lower extremity: full ROM; no edema Left lower extremity: full ROM; no edema Psych Mental Status: mental status grossly normal Speech and movement: Normal speech and movement present Affect: normal affect Attitude: cooperative Thought process: Normal thought process present Coding Level of Care Code Est Pt Level 4 (87456) Diagnoses Class 3 obesity E66.813 Primary hypertension I10 Hypertension type: primary hypertension RYLIE (obstructive sleep apnea) G47.33 Additional Codes PHQ-9 - 30996 - PHQ-9 Billing: Yes ([id number]) Assessment & Plan Assessment & Plan (1) Class 3 obesity: Code(s): E66.813 - Obesity, class 3 Category: Medical Plan: The patient is advised to continue lifestyle modifications, including dietary changes and increased physical activity, to manage obesity. A once-weekly injection of Tirzepatide is recommended to aid in weight loss and potentially improve blood pressure control. Follow-up is planned in 8 to 10 weeks to assess progress and adjust treatment as necessary. (2) HTN (hypertension): Code(s): I10 - Essential (primary) hypertension Category: Medical Qualifiers: Hypertension type: primary hypertension Qualified Code(s): I10 - Essential (primary) hypertension Plan: Patient's blood pressure readings has been slightly better at home 140 systolic. Today's blood pressure 140 systolic which is much improved since previous. He is otherwise asymptomatic without any blurred vision, headaches, chest discomforts. We plan on working on weight reduction particularly to help him reduce his blood pressure your and thus reduce blood pressure medication. We have done a bilateral renal ultrasound though did not reveal renal artery stenosis. We are hoping he is able to get GLP 1 covered by insurance so that he can lose weight as we are confident when he reduce his his BMI blood pressure will be better control Goal blood pressures to be below 140/90 (3) RYLIE (obstructive sleep apnea): Comment: HOME SLEEP STUDY , SHOWS ONLY MILD RYLIE , WITH AHI OF 5.1, BUT HE HAS LOT OF SNORING . BECAUSE HE HAS UNCONTROLLED HYPERTENSION ,, I THINK HE WILL BENEFIT FROM THE USE OF CPAP THERAPY , EVEN THOUGH HIS RYLIE IS MILD . Code(s): G47.33 - Obstructive sleep apnea (adult) (pediatric) Category: Medical Plan: The patient is encouraged to undergo a sleep study to confirm the diagnosis of sleep apnea. Management options will be considered based on the results of the sleep study.
--- OUTSIDE RECORDS SUMMARY | 2025-06-27 15:02 | XMS_ITS | Encounter Summary ---
Author Organization [facility] Address [address] [facility] [address] [place] [address] Phone Care Team Providers Care Surface Supply Breathing Apparatus Name Role Phone Chun Bernal Primary Care Provider + Encounter Details Date Type Department Care Team (Latest Contact Info) Description 07/09/2020 Transcribe Orders Virtual Department [address] [place] [address] Dakota Lee MD 8 [facility] [address] [place] [address] Encounter for laboratory testing for COVID-19 virus (Primary Dx) Social History Tobacco Use Types Packs/Day Years Used Date Smoking Tobacco: Never Assessed Sex and Gender Information Value Date Recorded Sex Assigned at Not on file Legal Sex Male 9:29 PM EDT Gender Identity Not on file Sexual Orientation Not on file documented as of this encounter Plan of Treatment Not on file documented as of this encounter Visit Diagnoses Diagnosis Encounter for laboratory testing for COVID-19 virus- Primary documented in this encounter Additional Health Concerns Infection Onset Date Last Indicated Resolved Time CoV-Exposed Comment:Recent close contact 07/29/2020 07/29/2020 08/12/2020 1:23 AM EDT documented as of this encounter Care Teams Surface Supply Breathing Apparatus Relationship Specialty Start Date End Date Chun Bernal PA [address] [place] [id number] PCP - General 07/09/20 documented as of this encounter Additional Source Comments The information contained in this document represents components of the legal health record. It is not the complete legal health record.[facility]
--- OUTSIDE RECORDS SUMMARY | 2025-06-27 15:02 | XMS_ITS | Clinical Summary ---
Author Organization [facility] Address [address] [place] [id number] Phone Care Team Providers Care Logging Contractor Name Role Phone Chun Bernal Primary Care [...] file Medical Devices Not on file Insurance [facility]STAR [facility] Care Teams Logging Contractor Relationship Specialty Start Date End Date Chun Bernal PA [address] [place] [address] PCP - General 07/09/20 Additional Source Comments The information contained in this document represents components of the legal health record. It is not the complete legal health record.[facility]
--- OUTSIDE RECORDS SUMMARY | 2025-06-27 15:02 | XMS_ITS | Encounter Summary ---
Author Organization [facility] Address [address] [facility] [address] [place] [address] Phone Care Team Providers Care Sales Effectiveness Manager Name Role Phone Chun Bernal Primary Care Provider + Encounter Details Date Type Department Care Team (Latest Contact Info) Description 07/29/2020 Transcribe Orders Virtual Department [address] [place] [address] Dakota Lee MD 8 [facility] [address] [place] [address] Encounter for laboratory testing for COVID-19 virus [...] documented as of this encounter Care Teams Sales Effectiveness Manager Relationship Specialty Start Date End Date Chun Bernal PA [address] [place] [id number] PCP - General 07/09/20 documented as of this encounter Additional Source Comments The information contained in this document represents components of the legal health record. It is not the complete legal health record.[facility]
== END 2025-06-27 15:34 | disposition home or self-care (01) ==
LOC: HO.HMCH 14:15
PROVIDERS: PCP Physician Assistant; Visit Provider Physician Assistant
DX: I10 Essential (primary) hypertension (principal); E66.813 Obesity, class 3; G47.33 Obstructive sleep apnea (adult) (pediatric); Z68.42 Body mass index [BMI] 45.0-49.9, adult

== ENCOUNTER → 2025-06-27 14:14 | Outpatient (BNVA) | payer OTHER, SELFPAY | PROVIDERS: PCP Physician Assistant; Visit Provider Physician Assistant | DX: E66.813 Obesity, class 3 (principal); I10 Essential (primary) hypertension; G47.33 Obstructive sleep apnea (adult) (pediatric); F32.A Depression, unspecified; F41.9 Anxiety disorder, unspecified; Z99.89 Dependence on other enabling machines and devices | CPT/HCPCS: 96127; 99212 ==

== ENCOUNTER 2025-06-28 09:16 | Outpatient (REF) | payer OTHER, SELFPAY ==
--- OUTSIDE RECORDS SUMMARY | 2025-06-28 10:05 | XMS_ITS | Encounter Summary ---
Author Organization [facility] Address [address] [facility] [address] [place] [address] Phone Care Team Providers Care Senior Trainer Name Role Phone Chun Bernal Primary Care Provider + Encounter Details Date Type Department Care Team (Latest Contact Info) Description 07/29/2020 Transcribe Orders Virtual Department [address] [place] [address] Dakota Lee MD 8 [facility] [address] [place] [address] Encounter for laboratory testing for COVID-19 virus [...] documented as of this encounter Care Teams Senior Trainer Relationship Specialty Start Date End Date Chun Bernal PA [address] [place] [id number] PCP - General 07/09/20 documented as of this encounter Additional Source Comments The information contained in this document represents components of the legal health record. It is not the complete legal health record.[facility]
--- OUTSIDE RECORDS SUMMARY | 2025-06-28 10:05 | XMS_ITS | Clinical Summary ---
Author Organization [facility] Address [address] [place] [phone] Phone Care Team Providers Care Automation And Control Engineer Name Role Phone Chun Bernal Primary Care [...] file Medical Devices Not on file Insurance [facility] Digital Media Broadcast [facility] Care Teams Automation And Control Engineer Relationship Specialty Start Date End Date Chun Bernal PA [address] [place] [address] PCP - General 07/09/20 Additional Source Comments The information contained in this document represents components of the legal health record. It is not the complete legal health record.[facility]
--- OUTSIDE RECORDS SUMMARY | 2025-06-28 10:05 | XMS_ITS | Encounter Summary ---
Author Organization [facility] Address [address] [facility] [address] [place] [address] Phone Care Team Providers Care Land Management Supervisor Name Role Phone Chun Bernal Primary Care Provider + Encounter Details Date Type Department Care Team (Latest Contact Info) Description 07/09/2020 Transcribe Orders Virtual Department [address] [place] [address] Dakota Lee MD 8 [facility] [address] [place] [address] Encounter for laboratory testing for COVID-19 virus [...] documented as of this encounter Care Teams Land Management Supervisor Relationship Specialty Start Date End Date Chun Bernal PA [address] [place] [id number] PCP - General 07/09/20 documented as of this encounter Additional Source Comments The information contained in this document represents components of the legal health record. It is not the complete legal health record.[facility]
[2025-06-28 12:00] LABS: Hematocrit 48.6 % (42.0-52.0); Hemoglobin 15.6 g/dl (14.0-18.0); Mean Corpuscular HGB Conc 32.1 g/dl (31.0-36.0); Mean Corpuscular Hemoglobin 26.6 pg (27.0-33.0); Mean Corpuscular Volume 82.9 fL (80.0-98.0); NRBC Abs Auto 0.000 X10*3/uL (0.0-0.012); NRBC Pct Auto 0.0 /100WBC (0.0-0.2); Platelet Count 321 X10*3/uL (160-400); Red Blood Count 5.86 X10*6/uL (4.60-5.80); White Blood Count 8.1 X10*3/uL (4.8-10.8)
[2025-06-28 12:43] LABS: Hemoglobin A1C 175.1850 umol/L; Total Hemoglobin (HGBA1C) 4135.8478 umol/L
[2025-06-28 12:59] LABS: Alanine Aminotransferase 15 U/L (0-40); Albumin Level 4.5 g/dL (3.5-5.0); Alkaline Phosphatase 101 U/L (39-117); Anion Gap 10 (12-20); Aspartate Amino Transferase 22 U/L (5-37); Blood Urea Nitrogen 10 mg/dL (9-16); Calcium 8.9 mg/dL (8.4-10.2); Carbon Dioxide 25 mmol/L (22-29); Chloride 108 mmol/L (96-108); Estimated Glomerular Filt Rate > 60; Potassium 3.7 mmol/L (3.3-5.1); Sodium 139 mmol/L (135-145); Total Protein 7.2 g/dL (6.5-8.0)
[2025-06-28 13:10] LABS: Microalbum/Creatinine Ratio Ur 27.4 ug/mg cr (<30)
[2025-07-04 16:58] LABS: Testosterone, Free 67.3 pg/mL (35.0-155.0)
== END 2025-06-28 09:17 | disposition home or self-care (01) ==
LOC: HO.WFDLDS 09:16
PROVIDERS: Visit Provider Physician Assistant
DX: I10 Essential (primary) hypertension (principal); R73.09 Other abnormal glucose; E66.813 Obesity, class 3
CPT/HCPCS: 36415; 80053; 82043; 82570; 83036; 84402; 84403; 85027

== ENCOUNTER 2025-10-08 14:14 | Outpatient (AMB) | payer OTHER, SELFPAY ==
--- NOTE | 2025-10-08 14:42 | A.OFFPC_ITS ---
Vital Signs 10/08/25 14:43 Height 5 ft 9 in Weight 322 lb 2 oz BMI 47.6 BP 130/90 H Blood Pressure Location Lt brachial Position Sitting Pulse 105 H Pulse Source Pulse Oximeter Temp 97.1 F Temp Source Temporal Artery Scan Pulse Oximetry (%) 98 Oxygen Delivery Method Room Air Intake Visit Reasons: f/u Weight check/ labs Intake Note: Patient is here to follow up on Weight check and labs. Bilingual Middle School Teacher Required: No Government Relations Director: Not Required per policy Accompanied by: Self / Same As Patient Allergies amlodipine Allergy (Unknown, Verified 10/08/25 14:54) GI side effects ibuprofen Allergy (Unknown, Verified 10/08/25 14:54) Hives citalopram (From Celexa) Adverse Reaction (Intermediate, Verified 10/08/25 14:54) Depression Medication List - Last Reconciled 10/08/25 by Chun Bernal PA-C blood pressure monitor As directed cetirizine (Zyrtec) 10 mg PO DAILY 90 days escitalopram oxalate (Lexapro) 10 mg PO DAILY 30 days fluticasone propionate 50 mcg/actuation (Flonase Allergy Relief) 2 sprays intranasal BID 30 days gabapentin 300 mg PO BID 90 days hydrochlorothiazide 25 mg PO DAILY 90 days lisinopril 30 mg PO DAILY lorazepam 0.5 mg PO DAILY PRN 7 days meloxicam 15 mg PO DAILY 30 days metoprolol succinate ER 25 mg PO DAILY nifedipine ER 30 mg PO DAILY 30 days Tobacco use date assessed: 10/08/25 Dental Screening Dental Screen Date: 06/27/25 HPI f/u Weight check/ labs HPI Details Lopez is a 49 year-old male here today for follow-up visit. Patient has a past medical history significant for essential hypertension, smoker, class 3 obesity, obstructive sleep apnea chronic lumbar spine pain. Class 3 obesity/ RYLIE: Today's BMI at 47. He has a history of obesity, hypertension, obstructive sleep apnea (on CPAP therapy), high cholesterol, and elevated blood sugar. Previously, he was receiving GLP-1 injections, which were effective in lowering his weight and bloo d pressure; his weight had decreased to 312 pounds. However, his insurance stopped covering the medication. We will now also try to get him set up with weight management program again He is interested in restarting a GLP 1 indicated for obstructive sleep apnea, obesity and hypertension. Will start Zepbound 2.5 mg weekly and up titrate per response ?? .. ? Hypertension: Today's blood pressure remains slightly elevated though much improved from previous visits. He is starting his weight loss journey in hopes to lose enough weight to reduce his blood pressure medication.. He does report monitoring his blood pressure at home and reports 140s systolic. Otherwise asymptomatic without any blurred vision headaches or chest discomforts. We did send patient for renal ultrasound to evaluate for renal artery stenosis though no evidence of renal artery stenosis. ..Major depressive disorder/ anxiety:? He continues on Lexapro 10 mg which seems to be effective. Does have lo razepam 0.5 mg available to him for high points of anxiety as well. .. ..Obstructive sleep apnea:? Has been farzana ated with CPAP nightly basis with good effect on his sleep.? Continues to follow pulmonology. COUNTS INCLUDE 234 BEDS AT THE [facility] Medical History Morbid obesity Lumbar spondylosis Tobacco dependence Hypertension RYLIE (obstructive sleep apnea) HTN (hypertension) Surgical History No pertinent past surgical history Family History Father No problems noted. Mother Arthritis Asthma Paternal Grandfather Leukemia Substance use disorder Brother Substance use disorder Social History Housing: Apartment Alcohol intake: former Patient Tobacco Use Status: Former Tobacco user Tobacco use type: Cigarette Cigarette Packs Per Day: 0.5 Cigarettes Per Day: 10 Years Smoked: 27 e-Cigarette/Vaping Use: Never Used Second Hand Smoke Exposure: Yes Substance Use Type: Marijuana service: No Current occupational status: employed Current occupation: N Cognitive needs: No Hearing needs: No Vision needs: No Questionnaire Thrive Questionnaire Date Thrive assessed: 03/31/25 I am a: Patient What is your living situation today?: I have a steady place to live Within the past 12 months, did the food you bought not last and you didn't have the money to get more?: Often true Within the past 12 months, did you worry whether your food would run out before you got money to buy more?: Never true Do you have trouble paying for medicines?: No Do you have trouble getting transportation to medical appointments?: No Do you have trouble paying your heating and electricity bill?: No Do you have trouble taking care of your child, family member or friend?: No Do you have trouble with day-to-day activities such as bathing, preparing meals, shopping, managing finances, etc.?: No Are you currently unemployed and looking for a job?: I choose not to answer this question Are you interested in more education?: No Please select the resources that you would like help with: None Currently or been in a relationship where the following occur: No concerns reported THRIVE Score: 1 JEFF-7 AMB Questionnaire JEFF-7 Date JEFF - 7 assessed: 11/06/24 Source: Developed by Drs. Bryson Stokes, Elda Prince, Sid Acevedo and colleagues, with an educational junior from [employer]. Review of Systems Const Denies headache(s) Eyes Denies loss of vision ENT Denies vertigo, Denies dizziness, Denies headache(s) and Denies sore throat Card Denies chest pain, Denies leg edema and Denies lightheadedness Resp Denies cough, Denies hemoptysis and Denies wheezing GI Denies abdominal pain, Denies melena, Denies constipation, Denies diarrhea and Denies vomiting Denies dysuria, Denies urinary frequency and Denies urinary urgency Musc Denies arthralgias, Denies joint swelling, Denies numbness and Denies tingling Neuro Denies Abnormal speech present, Denies behavioral changes, Denies vertigo, Denies dizziness, Denies headache(s), Denies loss of vision, Denies memory loss, Denies numbness and Denies tingling Psych Denies anxiety, Denies behavioral changes, Denies depression, Denies memory loss and Denies panic attacks Martin/Lymph Denies easy bleeding and Denies easy bruising Aller/Immun Denies wheezing Physical exam (Primary Care) Vital Signs: Last Vital Signs Temp 97.1 F 10/08/25 14:43 Pulse 105 H 10/08/25 14:43 BP 130/90 H 10/08/25 14:43 Pulse Ox 98 10/08/25 14:43 Oxygen Delivery Method Room Air 10/08/25 14:43 BMI result Body Mass Index 47.6 BMI Assessment/Plan discussion: High BMI High, discussed plan: lifestyle, weight reduction, dietary and physical activity Tobacco/Smoking Status: Tobacco use Status Tobacco use date assessed 10/08/25 10/08/25 14:46 Patient Tobacco Use Status Former Tobacco user 10/08/25 14:46 Tobacco use type Cigarette 10/08/25 14:46 e-Cigarette/Vaping Use Never Used 10/08/25 14:46 Thrive Assessment: Date of Thrive Assessment Date Thrive assessed 03/31/25 10/08/25 14:46 Currently or been in a relationship where the following occur: No concerns reported Const Other: Morbidly obese General: healthy appearing, no acute distress, alert and awake Nutritional Appearance: well nourished Orientation/consciousness: oriented to person, oriented to place and oriented to time HENMT Ears: TM's normal bilaterally General nose exam: Normal nasal mucous membranes and turbinates present Eyes Conjunctivae: conjunctivae normal Sclerae: sclerae normal Pupils: Equal, round and reactive pupils present Neck Neck: Yes no lymphadenopathy and Yes no JVD Thyroid: Thyroid normal Carotids: no bruits Resp Effort & Inspection: normal respiratory effort and not tachypneic Auscultation: no crackles, no rales, no rhonchi and no wheezes Cardio Rate: regular rate Rhythm: regular rhythm Heart sounds: no murmurs and normal S1 and S2 GI Palpation (GI): Soft to palpation, nontender, no hepatomegaly and no splenomegaly Auscultation: normal bowel sounds Skin General skin exam: no rashes or lesions noted and dry skin Neuro General: oriented to person, oriented to place and oriented to time Cranial nerves: Yes Equal, round and reactive pupils present Speech: No Abnormal speech present Gait exam (Neuro): Normal gait present Motor exam (neuro): no tremor noted Extrem Right upper extremity: full ROM Left upper extremity: full ROM Right lower extremity: full ROM; no edema Left lower extremity: full ROM; no edema Psych Mental Status: mental status grossly normal Speech and movement: Normal speech and movement present Affect: normal affect Attitude: cooperative Thought process: Normal thought process present Coding Level of Care Code Est Pt Level 4 (48142) Diagnoses Class 3 obesity E66.813 Primary hypertension I10 Hypertension type: primary hypertension RYLIE (obstructive sleep apnea) G47.33 Assessment & Plan Assessment & Plan (1) Class 3 obesity: Code(s): E66.813 - Obesity, class 3 Category: Medical Plan: The patient is advised to continue lifestyle modifications, including dietary changes and increased physical activity, to manage obesity. A once-weekly injection of Tirzepatide is recommended to aid in weight loss and potentially improve blood pressure control. Follow-up is planned in 3 months to assess progress and adjust treatment as necessary. (2) HTN (hypertension): Code(s): I10 - Essential (primary) hypertension Category: Medical Qualifiers: Hypertension type: primary hypertension Qualified Code(s): I10 - Essential (primary) hypertension Plan: Patient's blood pressure readings has been slightly better at home 140 systolic. Today's blood pressure 140 systolic which is much improved since previous. He had better control of his hypertension when he was able to lose a bit of weight on GLP 1 therapy. He is otherwise asymptomatic without any blurred vision, headaches, chest discomforts. We plan on working on weight reduction particularly to help him reduce his blood pressure your and thus reduce blood pressure medication. We have done a bilateral renal ultrasound though did not reveal renal artery stenosis. We are hoping he is able to get GLP 1 covered by insurance so that he can lose weight as we are confident when he reduce his his BMI blood pressure will be better control Goal blood pressures to be below 140/90 (3) RYLIE (obstructive sleep apnea): Comment: HOME SLEEP STUDY , SHOWS ONLY MILD RYLIE , WITH AHI OF 5.1, BUT HE HAS LOT OF SNORING . BECAUSE HE HAS UNCONTROLLED HYPERTENSION ,, I THINK HE WILL BENEFIT FROM THE USE OF CPAP THERAPY , EVEN THOUGH HIS RYLIE IS MILD . Code(s): G47.33 - Obstructive sleep apnea (adult) (pediatric) Category: Medical Plan: Allan now is using CPAP therapy and a nightly basis with good effect. Again will start Zepbound to help him with his obstructive sleep apnea and his other comorbid conditions related to his weight.. Orders: Orders Hemoglobin A1c 10/08/25 R73.09 - Other abnormal glucose Comprehensive [place]. Panel Fast 10/08/25 I10 - Essential (primary) hypertension Lipid Panel 10/08/25 I10 - Essential (primary) hypertension Microalbumin, Random (w Creat) 10/08/25 I10 - Essential (primary) hypertension Complete Blood Count no Diff 10/08/25 I10 - Essential (primary) hypertension Prostate Specific Antigen Scr 10/08/25 I10 - Essential (primary) hypertension, Z12.5 - Encounter for screening for malignant neoplasm of prostate Referrals Medical Weight Management Referral E66.813 - Obesity, class 3 Medications: New tirzepatide (weight loss) (Zepbound) for 4 weeks 2.5 mg (0.5 mL) subcut QWEEK 2 mL 0RF 4 weeks E66.813 - Obesity, class 3, G47.33 - Obstructive sleep apnea (adult) (pediatric), I10 - Essential (primary) hypertension
[2025-10-08 14:43] VITALS: BP 130/90; PULSE 105; TEMP 36.2; O2SAT 98; BMI 47.6
--- OUTSIDE RECORDS SUMMARY | 2025-10-08 20:14 | XMS_ITS | Encounter Summary ---
Author Organization [facility] Address [address] [facility] [address] [place] [address] Phone Care Team Providers Care Appraiser Personal Property Name Role Phone Chun Bernal Primary Care Provider + Encounter Details Date Type Department Care Team (Latest Contact Info) Description 07/29/2020 Transcribe Orders Virtual Department [address] [place] [address] Dakota Lee MD [address] [facility] [address] [place] [address] Encounter for laboratory testing for COVID-19 virus [...] documented as of this encounter Care Teams Appraiser Personal Property Relationship Specialty Start Date End Date Chun Bernal PA [address] [place] [phone] PCP - General 07/09/20 documented as of this encounter Additional Source Comments The information contained in this document represents components of the legal health record. It is not the complete legal health record.[facility]
--- OUTSIDE RECORDS SUMMARY | 2025-10-08 20:14 | XMS_ITS | Encounter Summary ---
Author Organization [facility] Address [address] [facility] [address] [place] [address] Phone Care Team Providers Care Epoxy Coatings Installer Name Role Phone Chun Bernal Primary Care Provider + Encounter Details Date Type Department Care Team (Latest Contact Info) Description 07/09/2020 Transcribe Orders Virtual Department [address] [place] [address] Dakota Lee MD 8 [facility] [address] [place] [address] Encounter for laboratory testing for COVID-19 virus [...] documented as of this encounter Care Teams Epoxy Coatings Installer Relationship Specialty Start Date End Date hCun Bernal PA [address] [place] [phone] PCP - General 07/09/20 documented as of this encounter Additional Source Comments The information contained in this document represents components of the legal health record. It is not the complete legal health record.[facility]
--- OUTSIDE RECORDS SUMMARY | 2025-10-08 20:14 | XMS_ITS | Clinical Summary ---
Author Organization [facility] Address [address] [place] [phone] Phone Care Team Providers Care Wire Frame Maker Name Role Phone Chun Bernal Primary Care [...] file Medical Devices Not on file Insurance [facility] [employer] [facility] Care Teams Wire Frame Maker Relationship Specialty Start Date End Date Chun Bernal PA [address] [place] [address] PCP - General 07/09/20 Additional Source Comments The information contained in this document represents components of the legal health record. It is not the complete legal health record.[facility]
== END 2025-10-08 16:01 | disposition home or self-care (01) ==
LOC: HO.HMCH 14:15
PROVIDERS: PCP Physician Assistant; Visit Provider Physician Assistant
DX: I10 Essential (primary) hypertension (principal); E66.813 Obesity, class 3; G47.33 Obstructive sleep apnea (adult) (pediatric); Z68.42 Body mass index [BMI] 45.0-49.9, adult

== ENCOUNTER → 2025-10-08 14:14 | Outpatient (BNVA) | payer OTHER, SELFPAY | PROVIDERS: PCP Physician Assistant; Visit Provider Physician Assistant | DX: E66.813 Obesity, class 3 (principal); I10 Essential (primary) hypertension; F32.A Depression, unspecified; F41.9 Anxiety disorder, unspecified; G47.33 Obstructive sleep apnea (adult) (pediatric); R73.09 Other abnormal glucose; Z99.89 Dependence on other enabling machines and devices; Z68.42 Body mass index [BMI] 45.0-49.9, adult | CPT/HCPCS: 99212 ==